=== PATIENT | female | born 1970 | race Hispanic/Latino ===

== ENCOUNTER 2018-03-25 21:58 | Observation (INO) | payer OTHER ==
--- OUTSIDE RECORDS SUMMARY | 2018-03-25 22:04 | XMS REPORT | Continuity of Care Document ---
:1970 Author Organization Interface Problems Problem Status Onset Classification Date Comments Source Date Reported 06/03 SLEEVE Active [address] MORBIT OBESITY Active [address] 447.10 Active 014 [facility] Angiography of Active Problem 06/07/2016 coronary arteries 014 [facility] Endometriosis Resolved Problem 09/24/2013 [facility] Hypercholesteremia Active Problem 09/24/2013 [facility] Anxiety Active Problem 06/07/2016 [facility] Endometriosis of Resolved Problem 06/07/2016 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 mL, Route: 2017 Medical SUB-Q, Drug Center form: INJ, Q8H, Dosing Weight 103.636, kg, Start date: 06/04/16 8:00:00 CDT, Duration: 30 day, Stop date: 07/04/16 0:00:00 CDTNotes: porcine heparin Ketorolac 30 mg, 1 mL, Inactive 06/04/ [facility] Route: IVP, 2017 Medical Drug form: Center INJ, Q6H, Dosing Weight 103.636, kg, Start date: 06/04/16 0:00:00 CDT, Duration: 6 doses or times, Stop date: 06/05/16 6:00:00 CDTNotes: (Same as:Toradol) IV bolus must be given >15 seconds. Give IM administration slowly and deeply into the muscle. Not for use > 4 days MEDICATION WASTE Product Size: 30 mg Product Wasted: __0_ mg Cefoxitin 2 gm, Route: Inactive [place] IVPB, Drug 2016 Medical form: INJ, Center Q6H, Dosing Weight 103.636, kg, Start date: 06/03/16 23:00:00 CDT, Duration: 1 doses or times, Stop date: 06/03/16 23:00:00 CDTNotes: (Same As: Mefoxin) MEDICATION WASTE Product Size: 2000 mg Product Wasted: 0 ___ mg Emend 125 mg, Route: Inactive [facility] IV, ONCE, 2016 Medical Dosing Weight Center 103.636, kg, PRN Nausea, Start date: 06/03/16 18:32:00 CDT Hydromorphone 15 mg, 30 mL, No Longer [facility] Route: IV, Active 2016 [facility] Initial Center Loading Dose: 0.4mg, [place] Dose: 0.2 mg, [place] Lockout: 10 minutes, Continuous Basal Rate: 0 mg, 4 Hour Limit (In MG): 6, Drug Form: INJ, Continuous, Start date: 06/03/16 18:30:00 CDT, Duration: 30 day, Stop date: 07/03/16...Not es: (Same as: Dilaudid) conc=0.5 mg/ml Hydromorphone [place] COOPER Dose: ;Delay: ;Basal: enalaprilat 1.25 mg, 1 mL, No Longer [facility] Route: IVP, Active 2016 Medical Drug form: Center INJ, Q6H, Dosing Weight 103.636, kg, PRN Hypertension, Start date: 06/03/16 18:05:00 CDT, Duration: 30 day, Stop date: 07/03/16 18:04:00 CDT, BP Systolic greater than 190 and BP Siastolic greater than 100Notes: (Same as: Vasotec-IV) Acetaminophen 21.7 15 mL, Route: No Longer [place] MG/ML / PO, Drug Form: Active 2017 Medical Hydrocodone SOLN, Dosing Center Bitartrate 0.5 Weight MG/ML Oral 103.636, kg, Solution Q4H, PRN Pain Score 4-6, Start date: 06/03/16 18:05:00 CDT, Duration: 30 day, Stop date: 07/03/16 18:04:00 CDTNotes: Do not exceed 4gm/day of acetaminophen. (Same as: [place] 325/7.5) Ondansetron 4 mg, 2 mL, No Longer [place] Route: IVP, Active 2016 Medical Drug form: Center INJ, Q6H, Dosing Weight 103.636, kg, PRN Nausea & Vomiting, Start date: 06/03/16 18:05:00 CDT, Duration: 30 day, Stop date: 07/03/16 18:04:00 CDTNotes: (Same as: Jayne) MEDICATION WASTE Product Size: 4 mg Product Wasted: __0_ mg Naloxone 0.04 mg, 0.1 No Longer [place] mL, Route: Active 2016 Medical IVP, Drug Center form: INJ, Q2MIN, Dosing Weight 103.636, kg, PRN Narcotic Reversal, Start date: 06/03/16 18:05:00 CDT, Duration: 30 day, Stop date: 07/03/16 18:04:00 CDTNotes: Same as Narcan Benadryl 25 mg, 0.5 mL, No Longer [place] Route: IV, Active 2016 Medical Drug form: Center INJ, QID, Dosing Weight 103.636, kg, PRN as needed for itching, Start date: 06/03/16 18:05:00 CDT, Duration: 30 day, Stop date: 07/03/16 18:04:00 CDTNotes: (Same as: Benadryl) D5W 1/2NS + KCL 1,000 mL, No Longer [place] 20mEq/L 1000ml Rate: 125 Active 2017 Medical (Premix) 1,000 mL ml/hr, Infuse Center over: 8 hr, Route: IV, Dosing Weight 103.636 kg, Total Volume: 1,000, Start date: 06/03/16 18:05:00 CDT, Duration: 30 day, Stop date: 07/03/16 18:04:00 CDTNotes: PREMIX IV - Do Not Alter WASTE: F/P - Sink; E - Municipal Trash [facility] Naloxone 0.4 mg, Route: Inactive Anayeli IVP, Q2MIN, 2016 Medical Dosing Weight Center 103.636, kg, PRN Narcotic Reversal, Start date: 06/03/16 17:44:00 CDT, Duration: 8 doses or times, Stop date: Limited # of times Flumazenil 0.2 mg, Route: Inactive [facility] IVP, PRN, 2016 Medical Dosing Weight Center 103.636, kg, PRN Benzodiazepine Reversal, Initial dose, Start date: 06/03/16 17:44:00 CDT, Duration: 30 day, Stop date: 07/03/16 17:43:00 CDT Ondansetron 4 mg, Route: Inactive [facility] IVP, ONCE, 2016 Medical Dosing Weight Center 103.636, kg, PRN Nausea & Vomiting, Start date: 06/03/16 17:44:00 CDT Hydromorphone 0.5 mg, Route: Inactive [facility] IVP, Q5Min, 2016 Medical Dosing Weight Center 103.636, kg, PRN Pain Score 7-10, Start date: 06/03/16 17:44:00 CDT, Duration: 4 doses or times, Stop date: Limited # of times bupivacaine 1,350 MISC, 4 ml/hr, No Longer Anayeli mg + Q-Pump 1 ea Start date: Active 2016 [facility] 06/03/16 Center 15:19:00 CDT, Duration: 7, 270 ml, 103.636Notes: Preservative free. (Same As: Marcaine-MPF) heparin 5,000 unit, 1 No Longer [place] mL, Route: Active 2016 [facility] form: INJ, PRE OP, Start date: 06/03/16 11:00:00 CDT, Duration: 1 day, Stop date: 06/04/16 10:59:00 CDTNotes: porcine heparin Ofirmev 1 gm, 100 mL, No Longer [place] Route: IV, Active 2016 Medical Drug form: [place] INJ, PRE OP, Start date: 06/03/16 11:00:00 CDT, Duration: 1 day, Stop date: 06/04/16 10:59:00 CDTNotes: Infuse over 15 minutes Do not exceed 4gm/day of acetaminophen MEDICATION WASTE Product Size: 1000 mg Product Wasted: ___ mg scopolamine 1 patch, No Longer [place] Route: TOP, Active 2016 Medical Drug form: [place] ERFILM, PRE OP, Start date: 06/03/16 11:00:00 CDT, Duration: 1 day, Stop date: 06/04/16 10:59:00 CDTNotes: Change patch every 72 hours (Same as: Transderm-Scop ) Mefoxin 2 gm, Route: Inactive [place] IVPB, Drug 2016 Medical form: INJ, PRE Center OP, Start date: 06/03/16 11:00:00 CDT, Duration: 1 day, Stop date: 06/04/16 10:59:00 CDTNotes: (Same As: Mefoxin) MEDICATION WASTE Product Size: 2000 mg Product Wasted: ___ mg Fish Oil 1,000 mg, No Longer Route: PO, Active 2013 [facility] Drug form: CAP, Daily, Dosing Weight 95.909, kg, Start date: 09/23/13 9:00:00, Duration: 30 day, Stop date: 10/22/13 9:00:00 Hydrochlorothiazid 25 mg, 1 tab, No Longer e Route: PO, Active 2013 [facility] Drug form: TAB, Daily, Dosing Weight 95.909, kg, Start date: 09/23/13 9:00:00, Duration: 30 day, Stop date: 10/22/13 9:00:00Notes: (Same as: Hydrodiuril) With food. Famotidine 20 MG 20 mg, 1 tab, No Longer Oral Tablet Route: PO, Active 2013 [facility] Drug form: TAB, Daily, Dosing Weight 95.909, kg, Start date: 09/23/13 9:00:00, Duration: 30 day, Stop date: 10/22/13 9:00:00 Lovaza 1 gm, 1 cap, No Longer Route: PO, Active 2013 [facility] Drug form: CAP, Daily, Start date: 09/23/13 9:00:00, Duration: 30 day, Stop date: 10/22/13 9:00:00Notes: (Same as: Lovaza, formally named [place]) "Do Not Crush" pharmacy re-entry for product selection Aspirin 81 MG 81 mg, 1 tab, No Longer Enteric Coated Route: PO, Active 2013 [facility] Tablet Drug form: ECTAB, Daily, Dosing Weight 95.909, kg, Start date: 09/23/13 9:00:00, Duration: 30 day, Stop date: 10/22/13 9:00:00Notes: Do not crush or chew. (Same As: Ecotrin) Zinacef + Sodium 1.5 gm, Route: Inactive Chloride 0.9% IV IVPB, ONCE, 2013 [facility] 100 mL Start date: 09/22/13 23:00:00, Stop date: 09/22/13 23:00:00Notes: (Same As: Kefurox, Zinacef) Pepcid 20 mg, 1 tab, Inactive Route: PO, 2013 [facility] Drug form: TAB, Q12H, Start date: 09/22/13 21:00:00, Duration: 30 day, Stop date: 10/22/13 9:00:00Notes: (Same as: Pepcid) atorvastatin 10 mg, 1 tab, Inactive Route: PO, 2013 [facility] Drug form: TAB, Bedtime, Dosing Weight 95.909, kg, Start date: 09/22/13 21:00:00, Duration: 30 day, Stop date: 10/21/13 21:00:00Notes: (Same As: Lipitor) Metoclopramide 10 mg, 2 mL, Inactive Route: IVP, 2013 [facility] Drug form: INJ, Q6H, Dosing Weight 95.909, kg, PRN Nausea & Vomiting, Start date: 09/22/13 15:54:00, Stop date: 09/22/13 23:00:00Notes: (Same as: Reglan) Fentanyl 25 microgram, Inactive 0.5 mL, Route: 2013 [facility] IVP, Drug form: INJ, Q5Min, Dosing Weight 95.909, kg, PRN Pain Score 4-6, Start date: 09/22/13 15:54:00, Duration: 4 doses or times, Stop date: 09/22/13 23:00:00Notes: (Same as: Sublimaze) Preservative free. Ondansetron 4 mg, 2 mL, Inactive Route: IVP2013 [facility] Drug form: INJ, ONCE, Dosing Weight 95.909, kg, PRN Nausea & Vomiting, Start date: 09/22/13 15:54:00Notes: (Same as: Zofran) Flumazenil 0.2 mg, 2 mL, Inactive Route: IVP2013 [facility] Drug form: INJ, PRN, Dosing Weight 95.909, kg, PRN Benzodiazepine Reversal, Initial dose, Start date: 09/22/13 15:54:00, Stop date: 09/22/13 23:00:00Notes: (Same as: Romazicon) Naloxone 0.04 mg, 0.1 Inactive mL, Route: 2013 [facility] IVP, Drug form: INJ, Q2MIN, Dosing Weight 95.909, kg, PRN Narcotic Reversal, Start date: 09/22/13 15:54:00, Duration: 8 doses or times, Stop date: 09/22/13 23:00:00Notes: Same as Narcan Labetalol 10 mg, 2 mL, Inactive Route: IVP2013 [facility] Drug form: INJ, Q5Min, Dosing Weight 95.909, kg, PRN Elevated BP, Start date: 09/22/13 15:54:00, Duration: 5 doses or times, Stop date: 09/22/13 23:00:00 Hydralazine 10 mg, 0.5 mL, Inactive Route: IVP2013 [facility] Drug form: INJ, Q20Min, Dosing Weight 95.909, kg, PRN Elevated BP, Start date: 09/22/13 15:54:00, Duration: 2 doses or times, Stop date: 09/22/13 23:00:00Notes: (Same as: Apresoline) Push over 5 minutes Sodium Chloride 250 mL, Route: Inactive 0.9% IV IVPB, Start 2013 [facility] date: 09/22/13 15:43:00, Duration: 30 day, Stop date: 10/22/13 15:42:00, PRN Line Flush BD Normal Saline 10 mL, Route: Inactive Flush IVP, Drug 2013 [facility] Form: INJ, PRN, PRN Line Flush, Start date: 09/22/13 15:43:00, Duration: 30 day, Stop date: 10/22/13 15:42:00Notes: (Same as: BD Posiflush) Zofran 4 mg, 2 mL, Inactive Route: IV, 2013 [facility] Drug form: INJ, Q6H, Dosing Weight 93.651, kg, PRN Nausea, Start date: 09/22/13 15:40:00, Duration: 30 day, Stop date: 10/22/13 15:39:00Notes: (Same as: Zofran) NS 0.45% IV 1,000 1,000 mL, Inactive mL Rate: 50 2013 [facility] ml/hr, Infuse over: 20 hr, Route: IV, Dosing Weight 95.909 kg, Total Volume: 1,000, Start date: 09/22/13 15:40:00, Duration: 30 day, Stop date: 10/22/13 15:39:00 acetaminophen-code 2 tab, Route: Inactive ine #3 PO, Drug Form: 2013 [facility] TAB, Dosing Weight 95.909, kg, Q4H, PRN Pain Score 4-6, Start date: 09/22/13 15:40:00, Duration: 30 day, Stop date: 10/22/13 15:39:00Notes: Do not exceed 4gm/day of acetaminophen. (Same as: Tylenol with Codeine # 3) Acetaminophen 325 1 tab, Route: Inactive MG / Hydrocodone PO, Drug Form: 2013 [facility] Bitartrate 5 MG TAB, Dosing Oral Tablet Weight 95.909, kg, Q4H, PRN Pain Score 4-6, Start date: 09/22/13 15:40:00, Duration: 30 day, Stop date: 10/22/13 15:39:00Notes: (Same as: [place] 325/5) Do not exceed 4gm/day of acetaminophen. Acetaminophen 325 1 tab, Route: Inactive MG / Hydrocodone PO, Drug Form: 2013 [facility] Bitartrate 10 MG TAB, Dosing Oral Tablet Weight 95.909, kg, Q4H, PRN Pain Score 4-6, Start date: 09/22/13 15:40:00, Duration: 30 day, Stop date: 10/22/13 15:39:00Notes: Do not exceed 4gm/day of acetaminophen. (Same as: [place] 325/10) Acetaminophen 650 mg, 2 tab, Inactive Route: PO, 2013 [facility] Drug form: TAB, Q4H, Dosing Weight 95.909, kg, PRN Pain 1-3/Temp > 100.4 F, Start date: 09/22/13 15:40:00, Duration: 30 day, Stop date: 10/22/13 15:39:00Notes: Do not exceed 4 gm/day. (Same as: Tylenol) Cefuroxime 1.5 gm, Route: No Longer IVPB, ONCALL, Active 2013 [facility] Dosing Weight 95.909, kg, Start date: 09/19/13 11:00:00, Duration: 30 day, Stop date: 10/19/13 10:59:00Notes: (Same As: Kefurox, Zinacef) atorvastatin 10 mg 10 mg=1 tab, Active oral tablet PO, Bedtime 2013 [facility] Aspirin 81 MG 81 mg=1 tab, Active Enteric Coated PO, Daily 2013 [facility] Tablet Docusate Sodium 100 mg=1 cap, Active 100 MG Oral PO, Daily, 2013 [facility] Capsule [Colace] Constipation Hydrochlorothiazid 25 mg, PO, Active e Daily 2013 [facility] Fish Oil 1000 mg 1,000 mg=1 Active oral capsule cap, PO, Daily 2013 [facility] Vitamin D3 1000 1,000 Active intl units oral IntlUnit=1 2013 [facility] capsule cap, PO, Daily Famotidine 20 MG 20 mg=1 tab, Active Oral Tablet PO, Daily 2013 [facility] Allergies, Adverse Reactions, Alerts Substance Category Reaction Severity Reaction Status Date Comments Source type Reported Compazine Assertion " HEAD Drug Active [facility] LOCKED TO allergy Medical [facility] Center POSITION, JAW SHIFTED OVER, EYES ROLLED UP" NKFA Assertion Food Active [facility] Immunizations Immunization Date Given Site Status Last Updated Comments Source Results Order Name Results Value Reference Date Interpretation Comments Source Range Breast Breast w/wo AMENDMENT: 01/11/2018 Drew Amato M.D. 12/07 - OPID w/wo /2017 - [place] contrast bilat MRI No prior ultrasounds are available at this time. Short interval followup is recommended in the absence of sonographic comparisons. A 6 month followup mammogram, ultrasound and MRI are recommended. bilat MRI Read by: Drew Amato MD Dictated Date/time: 01/11/18 09:11 Amended BI-RADS: 3 Probably benign Electronically Signed by: Drew Amato MD 01/11/18 09:11 FINAL REPORT letter sent: BI-RADS 3 - - Read by: Drew Amato MD Dictated Date/time: 12/07/17 17:23 Electronically Signed by: Drew Amato MD 12/07/17 17:23 FINAL REPORT BREAST MRI OF BOTH BREASTS : 12/07/2017 CLINICAL: /Rt Breast Lump, Inconclusive Mammogram. COMPARISON:No prior exams were available for comparison. TECHNIQUE: Interpretation of this MRI was correlated with available mammograms. 14 cc of MultiHance contrast was injected. Axial T1 and T2 and sagittal T1 images were obtained. FINDINGS: Bilateral background breast enhancement is marked. Foci present both breasts. There are multiple cysts seen in the bilateral breasts most prominent in the left lower outer quadrant, the largest of which at 4 oclock measures 2.4cm in size. These are described in the ultrasound rep ort. However no ultrasound images are available for review. It would be helpful to acquire outside ultrasound images for review. There is no suspicious right upper outer breast finding to correspond with the palpable. There are no abnormalities seen in the axillary nodes region. IMPRESSION: INCOMPLETE: NEEDS ADDITIONAL IMAGING EVALUATION RECOMMENDATION:Multiple bilateral cysts are probably benign. The outside ultrasound images are needed for review. Clinical managment of the palpable finding is recommended. A follow-up ultrasound in 6 months is recommended to demonstrate stability. (06/08/2018) This exam was interpreted at [id number] for [facility]. SUMMARY: Prior ultrasound films are needed for comparison. If these become available , the above recommendation may not be needed and an addendum may be generated. Drew Amato M.D. [facility]/:12/07/2017 17:23:46 Crab Fisher(s): PING SIMONS RT, [facility] Outpatient Imaging Department letter sent: BI-RADS 0 MRI BI-RADS: 0 Indeterminate CHEM PANEL Magnesium 2.5 mg/dL 1.8 - 2.4 06/[address] [facility] CHEM PANEL Phosphorus 3.4 mg/dL 2.5 - 4.5 06/04 [facility]2016 [facility] ELECTROLYT AGAP 21.3 meq/L 10.0 - 06/04 [facility] ES 20.0 [facility] ELECTROLYT eGFR 111 06/04 Result Comment: The eGFR is calculated using the CKD-EPI formula. In most young, healthy individuals the eGFR will be >90 mL/ min/1.73m2. The eGFR declines with age. An eGFR of 60-89 may be normal in [facility] mL/min/1.7 /2016 some populations, particularly the elderly, for whom the CKD-EPI formula has not been extensively validated. Use of the eGFR is not recommended in the following populations: [address] Individuals with unstable creatinine concentrations, including patients and those with serious co-morbid conditions. Patients with extremes in muscle mass or diet. The data above are obtained from the National Kidney Disease Education Program (NKDEP) which additionally recommends that when the eGFR is used in patients with extremes of body mass index for purposes of drug dosing, the eGFR should be multiplied by the estimated BMI. ELECTROLYT Potassium 4.3 meq/L 3.5 - 5.1 06/04 [facility] ES Lvl [facility] ELECTROLYT CO2 17 meq/L 24 - 32 06/04 [facility] ELECTROLYT Chloride Lvl 106 meq/L 95 - 109 06/04 [facility] ELECTROLYT Calcium Lvl 8.6 mg/dL 8.5 - 10.5 06/04 [facility] ELECTROLYT BUN 11 mg/dL 7 - 22 06/04 [facility] ELECTROLYT Glucose Lvl 114 mg/dL 70 - 99 06/04 [facility] ELECTROLYT Creatinine 0.62 mg/dL 0.50 - 06/04 [facility] ES Lvl 1.40 [facility] ELECTROLYT Sodium Lvl 140 meq/L 135 - 145 06/04 [facility] HEMATOLOGY Platelet 229 K/CMM 133 - 450 06/04 [facility] HEMATOLOGY RDW 15.4 % 11.5 - 06/04 14.5 [facility] HEMATOLOGY MPV 8.9 fL 7.4 - 10.4 06/04 [facility] HEMATOLOGY MCV 85.9 fL 80.0 - 06/04 [facility] 98.0 [facility] HEMATOLOGY Hct 40.4 % 36.0 - 06/04 48.0 [facility] HEMATOLOGY MCHC 33.4 g/dL 32.0 - 06/04 36.0 [facility] HEMATOLOGY MCH 28.7 pg 27.0 - 06/04 [facility] 31.0 [facility] HEMATOLOGY Hgb 13.5 g/dL 12.0 - 06/04 [facility] 16.0 [facility] HEMATOLOGY WBC 8.6 K/CMM 3.7 - 10.4 06/04 [facility] HEMATOLOGY RBC 4.70 M/CMM 4.20 - 06/04 [place] 5.40 [facility] HEMATOLOGY PTT 26.6 s 22.9 - 06/04 [place] 35.8 [facility] HEMATOLOGY PT 14.8 s 12.0 - 06/04 14.7 [facility] HEMATOLOGY INR 1.14 0.85 - 06/04 [place] 1.17 [facility] HEMATOLOGY Basophils 0.1 % 0.0 - 1.0 06/04 [facility] HEMATOLOGY Segs-Bands # 7.8 K/CMM 1.5 - 8.1 06/04 [facility] HEMATOLOGY Monocytes 2.2 % 2.0 - 12.0 06/04 [facility] HEMATOLOGY Lymphocytes 7.9 % 20.0 - 06/04 [place] 40.0 [facility] HEMATOLOGY Segs 89.8 % 45.0 - 06/04 [facility] 75.0 [facility] HEMATOLOGY Lymphocytes 0.7 K/CMM 1.0 - 5.5 06/04 [facility] # /2016 [facility] HEMATOLOGY Monocytes # 0.2 K/CMM 0.0 - 0.8 06/04 [facility] BLOOD BANK Antibody Negative 06/03 [facility] RESULTS Scrn [facility] (06/03/16 10:51 AM) [place] BLOOD BANK ABO/Rh A POS 06/03 [facility] RESULTS [facility] CHEM PANEL eGFR 112 05/29 Result Comment: The eGFR is calculated using the CKD-EPI formula. In most young, healthy individuals the eGFR will be >90 mL/ min/1.73m2. The eGFR declines with age. An eGFR of 60-89 may be normal in [facility] mL/min/1.7 /2016 some populations, particularly the elderly, for whom the CKD-EPI formula has not been extensively validated. Use of the eGFR is not recommended in the following populations: [address] Individuals with unstable creatinine concentrations, including patients and those with serious co-morbid conditions. Patients with extremes in muscle mass or diet. The data above are obtained from the National Kidney Disease Education Program (NKDEP) which additionally recommends that when the eGFR is used in patients with extremes of body mass index for purposes of drug dosing, the eGFR should be multiplied by the estimated BMI. CHEM PANEL AST 19 unit/L 0 - 37 05/29 [facility] CHEM PANEL Bili Total 0.6 mg/dL 0.2 - 1.3 05/29 [facility] CHEM PANEL Alk Phos 173 unit/L 39 - 136 05/29 [facility] CHEM PANEL ALT 40 unit/L 0 - 65 05/29 [facility] CHEM PANEL Creatinine 0.60 mg/dL 0.50 - 05/29 [facility] Lvl 1.40 [facility] CHEM PANEL Glucose Lvl 73 mg/dL 70 - 99 05/29 [facility] CHEM PANEL Potassium 4.3 meq/L 3.5 - 5.1 05/29 [facility] Lvl [facility] CHEM PANEL BUN 19 mg/dL 7 - 22 05/29 [facility] CHEM PANEL Sodium Lvl 139 meq/L 135 - 145 05/29 [facility] CHEM PANEL Total 7.8 g/dL 6.4 - 8.4 05/29 [facility] CHEM PANEL CO2 27 meq/L 24 - 32 05/29 [facility] CHEM PANEL Chloride Lvl 100 meq/L 95 - 109 05/29 [facility] CHEM PANEL Calcium Lvl 9.3 mg/dL 8.5 - 10.5 05/29 [facility] CHEM PANEL Albumin Lvl 4.2 g/dL 3.5 - 5.0 05/29 [facility] CHEM PANEL AGAP 16.3 meq/L 10.0 - 05/29 20.0 [facility] CHEM PANEL B/C Ratio 32 6 - 25 05/29 [facility] CHEM PANEL A/G Ratio 1.2 0.7 - 1.6 05/29 [facility] CHEM PANEL Globulin 3.6 g/dL 2.7 - 4.2 05/29 [facility] HEMATOLOGY MPV 9.0 fL 7.4 - 10.4 05/29 [facility] HEMATOLOGY Platelet 229 K/CMM 133 - 450 05/29 [facility] HEMATOLOGY MCHC 33.5 g/dL 32.0 - 05/29 36.0 [facility] HEMATOLOGY RDW 15.2 % 11.5 - 05/29 14.5 [facility] HEMATOLOGY Hct 45.4 % 36.0 - 05/29 48.0 [facility] HEMATOLOGY RBC 5.33 M/CMM 4.20 - 05/29 5.40 /2016 [facility] HEMATOLOGY MCV 85.2 fL 80.0 - 05/29 98.0 [facility] HEMATOLOGY Hgb 15.2 g/dL 12.0 - 05/29 16.0 [facility] HEMATOLOGY WBC 9.5 K/CMM 3.7 - 10.4 05/29 [facility] HEMATOLOGY MCH 28.5 pg 27.0 - 05/29 31.0 [facility] HEMATOLOGY Basophils 0.3 % 0.0 - 1.0 05/29 [facility] HEMATOLOGY Eosinophils 0.3 % 0.0 - 4.0 05/29 [facility] HEMATOLOGY Monocytes 3.7 % 2.0 - 12.0 05/29 [facility] HEMATOLOGY Segs-Bands # 6.7 K/CMM 1.5 - 8.1 05/29 [facility] HEMATOLOGY Lymphocytes 25.8 % 20.0 - 05/29 [facility] 40.0 [facility] HEMATOLOGY Segs 69.9 % 45.0 - 05/29 [place] 75.0 /2016 [facility] HEMATOLOGY Monocytes # 0.4 K/CMM 0.0 - 0.8 05/29 [facility] HEMATOLOGY Lymphocytes 2.5 K/CMM 1.0 - 5.5 05/29 [facility] # /2016 [facility] CHEM PANEL eGFR 114 09/22 1Result Comment: The eGFR is calculated using the CKD-EPI formula. In most young, healthy individuals the eGFR will be > 90 mL/min/1.73m2. The eGFR declines with age. An eGFR of 60-89 may be normal in mL/min/1. some populations, particularly the elderly, for whom the CKD-EPI formula has not been extensively validated. Use of the eGFR is not recommended in the following populations: [place] [id number] Individuals with unstable creatinine concentrations, including patients and those with serious co-morbid conditions. Patients with extremes in muscle mass or diet. The data above are obtained from the National Kidney Disease Education Program (NKDEP) which additionally recommends that when the eGFR is used in patients with extremes of body mass index for purposes of drug dosing, the eGFR should be multiplied by the estimated BMI. CHEM PANEL POC 13.3 g/dL 12.0 - 09/22 Hemoglobin 16.0 /2013 [facility] CHEM PANEL POC Ion Ca 1.21 1.05 - 09/22 mMol/L 1.25 /2013 [facility] CHEM PANEL POC AGAP 17.0 meq/L 10.0 - 09/22 20.0 [facility] CHEM PANEL POC 39.0 % 36.0 - 09/22 Hematocrit 48.0 [facility] CHEM PANEL POC Chloride 106 meq/L 95 - 109 09/22 [facility] CHEM PANEL POC Sodium 142 meq/L 135 - 145 09/22 [facility] CHEM PANEL POC 4.0 meq/L 3.5 - 5.1 09/22 Potassium [facility] CHEM PANEL POC Carbon 24 mEq/dL 24 - 32 09/22 Dioxide [facility] CHEM PANEL POC BUN 16 mg/dL 7 - 22 09/22 [facility] CHEM PANEL POC 0.6 mg/dL 0.5 - 1.4 09/22 Creatinine /2013 [facility] CHEM PANEL POC Glucose 83 mg/dL 70 - 99 09/22 [facility] BLOOD BANK Antibody Negative 09/19 RESULTS Scrn [facility] (09/19/13 10:34 AM) BLOOD BANK ABO/Rh A POS 09/19 RESULTS [facility] BLOOD BANK RBC product Product available 09/19 RESULTS [facility] (09/19/13 10:34 AM) ELECTROLYT AGAP 11.1 meq/L 10.0 - 09/19 ES 20.0 [facility] ELECTROLYT Calcium Lvl 9.2 mg/dL 8.5 - 10.5 09/19 ES [facility] ELECTROLYT Creatinine 0.6 mg/dL 0.5 - 1.4 09/19 ES Lvl [facility] ELECTROLYT BUN 24 mg/dL - 09/19 ES [facility] ELECTROLYT Potassium 3.1 meq/L 3.5 - 5.1 09/19 ES Lvl [facility] ELECTROLYT Sodium Lvl 140 meq/L 135 - 145 09/19 ES [facility] ELECTROLYT eGFR 114 09/19 2Result Comment: The eGFR is calculated using the CKD-EPI formula. In most young, healthy individuals the eGFR will be > 90 mL/min/1.73m2. The eGFR declines with age. An eGFR of 60-89 may be normal in mL/min/1. some populations, particularly the elderly, for whom the CKD-EPI formula has not been extensively validated. Use of the eGFR is not recommended in the following populations: [facility] 3m2 Individuals with unstable creatinine concentrations, including patients and those with serious co-morbid conditions. Patients with extremes in muscle mass or diet. The data above are obtained from the National Kidney Disease Education Program (NKDEP) which additionally recommends that when the eGFR is used in patients with extremes of body mass index for purposes of drug dosing, the eGFR should be multiplied by the estimated BMI. ELECTROLYT CO2 29 meq/L 24 - 32 09/19 ES [facility] ELECTROLYT Chloride Lvl 103 meq/L 95 - 109 09/19 ES [facility] ELECTROLYT Glucose Lvl 85 mg/dL 70 - 99 09/19 3Interpretive Data: Adult reference range values reflect the clinical guidelines of the [place] [employer]. [facility] ENDOCRINOL S Preg Negative Negative 09/19 OGY /2013 [facility] *NA* (09/19/13 10:34 AM) HEMATOLOGY MPV 9.1 fL 7.4 - 10.4 09/19 /2013 [facility] HEMATOLOGY Platelet 227 K/CMM 133 - 450 09/19 [facility] HEMATOLOGY RDW 14.2 % 11.5 - 09/19 14.5 [facility] HEMATOLOGY MCHC 33.9 g/dL 32.0 - 09/19 36.0 /2013 [facility] MCH 29.3 pg 27.0 - 09/19 31.0 /2013 [facility] MCV 86.5 fL 81.0 - 09/19 99.0 /2013 [facility] HEMATOLOGY Hct 40.1 % 36.0 - 09/19 48.0 [facility] Hgb 13.6 g/dL 12.0 - 09/19 16.0 [facility] HEMATOLOGY RBC 4.63 M/CMM 4.20 - 09/19 5.40 /2013 [facility] WBC 6.8 K/CMM 3.7 - 10.4 09/19 [facility] INR 1.00 0.85 - 09/19 4Interpretive Data: RECOMMENDED RANGES FOR PROTIME INR: 1.17 2.0-3.0 for most medical and surgical thromboembolic states. [facility] 2.5-3.5 for artificial heart valves and recurrent embolism. INR SHOULD BE USED ONLY FOR PATIENTS ON STABLE ANTICOAGULANT THERAPY. HEMATOLOGY PT 13.1 s 12.0 - 09/19 14.7 [facility] HEMATOLOGY PTT 30.0 s 22.9 - 08 5Interpretive 35.8 Data: Heparin [facility] Therapeutic Range: 57 - 92 [facility] HEMATOLOGY Eosinophils 0.1 K/CMM 0.0 - 0.5 07/08 [facility] # /2014 [facility] HEMATOLOGY Monocytes # 0.3 K/CMM 0.0 - 0.8 /08 /2013 [facility] Lymphocytes 1.9 K/CMM 1.0 - 5.5 /08 # /2013 [facility] Basophils # 0.0 K/CMM 0.0 - 0.2 /08 /2013 [facility] HEMATOLOGY Segs-Bands # 4.5 K/CMM 1.5 - 8.1 09/19 [place] HEMATOLOGY Basophils 0.3 % 0.0 - 1.0 09/19 [facility] HEMATOLOGY Lymphocytes 28.3 % 20.0 - 07/08 [facility] 40.0 /2013 [facility] HEMATOLOGY Monocytes 4.0 % 2.0 - 12.0 09/19 [facility] HEMATOLOGY Eosinophils 1.1 % 0.0 - 4.0 09/19 [facility] HEMATOLOGY Segs 66.3 % 45.0 - 07/08 75.0 /2013 [facility] Vital Signs Vital Sign Value Date Comments Source Respitory Rate 18 06/04/2016 [facility] Heart Rate 64 06/04/2016 [facility] Temperature Oral (F) 98.0 F 06/04/2016 [facility] Systolic (mm Hg) 107 06/04/2016 [facility] Diastolic (mm Hg) 70 06/04/2016 [facility] Respitory Rate 18 06/04/2016 [facility] Temperature Oral (F) 98.5 F 06/04/2016 [facility] Heart Rate 71 06/04/2016 [facility] Systolic (mm Hg) 125 06/04/2016 [facility] Diastolic (mm Hg) 76 06/04/2016 [facility] Heart Rate 72 06/04/2016 [facility] Respitory Rate 18 06/04/2016 [facility] Systolic (mm Hg) 125 06/04/2016 [facility] Diastolic (mm Hg) 85 06/04/2016 [facility] Temperature Oral (F) 97.8 F 06/04/2016 [facility] Weight 103.636 06/04/2016 [facility] BMI Calculated 38.02 06/04/2016 [facility] Height 165.1 cm 06/04/2016 [facility] Weight 103.636 06/03/2016 [facility] BMI Calculated 38.02 06/03/2016 [facility] Height 165.1 cm 05/29/2016 [facility] Respitory Rate 18 09/23/2013 [facility] Systolic (mm Hg) 114 09/23/2013 [facility] Diastolic (mm Hg) 77 09/23/2013 [facility] Diastolic (mm Hg) 75 09/22/2013 [facility] Systolic (mm Hg) 110 09/22/2013 [facility] Respitory Rate 20 09/22/2013 [facility] Diastolic (mm Hg) 70 09/22/2013 [facility] Systolic (mm Hg) 113 09/22/2013 [facility] Respitory Rate 20 09/22/2013 [facility] Height 165.1 cm 09/22/2013 [facility] BMI Calculated 35.19 09/22/2013 [facility] Weight 95.909 09/22/2013 [facility] Temperature Oral (F) 98.2 F 09/22/2013 [facility] BMI Calculated 35.19 09/19/2013 [facility] Weight 95.909 09/19/2013 [facility] Height 165.1 cm 09/19/2013 [facility] Heart Rate 86 09/19/2013 [facility] Temperature Oral (F) 98.3 F 09/19/2013 [facility] Encounters Location Location Encounter Encounter Reason Attending ADM DC Status Source Details Type Number For Provider Date Date Visit [facility] [id number] [place] 09[facility]22 09[facility]23 [facility] [place] [facility] Inpatient [id number] [place] 06/04 06/05 [facility] [place] /2016 [facility] Procedures Procedure Code Date Perfomer Comments Source Evacuation of [id number] Right leg [facility] hematoma<sup>1</sup> 4 exploration, Medical evacuation of Center hematoma, repair of Right femoral artery, arteriograms [facility] [id number] [facility] catheterization 4 Cardiac [id number] [facility] catheterization 4 [facility] Ovarian operation [id number] [address] Appendectomy [id number] [facility] Catheterization of [id number] [facility] left [facility] Cystectomy<sup>2</spencer [id number] ovarian [facility] p> Medical Center Operation<sup>3</sup [id number] endometriosis [facility] > times three Medical surgeries [place] Stent [id number] iliac vein [facility] placement<sup>4</sup Medical > Center
--- OUTSIDE RECORDS SUMMARY | 2018-03-25 22:04 | XMS REPORT | Summary of Care ---
:1970 Author Encounter HQ Rohan_marija(HODAN) [id number] Date(s): 09/22/13 - 09/22/[address] Discharge Disposition: Home Physician Attending: Morris Early MD Physician Admitting: Morris Early MD Physician_Referring: Morris Early MD Reason for Visit 447.10 Vital Signs Most recent to oldest 1 2 3 [Reference Range]: Height 165.1 cm 165.1 cm (09/22/13 11:15 AM) (09/19/13 10:10 AM) Temperature Oral [96.4-99.1 98.2 DegF 98.3 DegF DegF] (09/22/13 9:30 AM) (09/19/13 10:10 AM) Systolic Blood Pressure 114 mmHg 110 mmHg 113 mmHg [90-140 mmHg] (09/22/13 7:00 PM) (09/22/13 6:45 PM) (09/22/13 6:30 PM) Diastolic Blood Pressure 77 mmHg 75 mmHg 70 mmHg [60-90 mmHg] (09/22/13 7:00 PM) (09/22/13 6:45 PM) (09/22/13 6:30 PM) Respiratory Rate [14-20 BRMIN] 18 BRMIN 20 BRMIN 20 BRMIN (09/22/13 7:00 PM) (09/22/13 6:45 PM) (09/22/13 6:30 PM) Peripheral Pulse Rate [60-100 86 bpm bpm] (09/19/13 10:10 AM) Weight 95.909 kg 95.909 kg (09/22/13 11:15 AM) (09/19/13 10:10 AM) Body Mass Index 35.19 m2 35.19 m2 (09/22/13 11:15 AM) (09/19/13 10:10 AM) Problem List Condition Effective Dates Status Health Status Informant Angiography of coronary 08/15/13 Active arteries(Confirmed) Endometriosis(Confirmed) Resolved Hypercholesteremia(Confirmed) Active Occlusion of iliac vein(Confirmed) Active Ovarian cyst(Confirmed) Resolved Allergies, Adverse Reactions, Alerts Substance Reaction Severity Status Compazine " HEAD LOCKED TO ONE POSITION, JAW SHIFTED OVER, EYES Active ROLLED UP" NKFA Active Medications acetaminophen 650 mg, 2 tab, Route: PO, Drug form: TAB, Q4H, Dosing Weight 95.909, kg, PRN Pain 1-3/Temp > 100.4 F, Start date: 09/22/13 15:40:00, Duration: 30 day, Stop date: 10/22/13 15:39:00 Notes: Do not exceed 4 gm/day. (Same as: Tylenol) Start Date: 09/22/13 Stop Date: 09/22/13 Status: Discontinuedacetaminophen-codeine #3 2 tab, Route: PO, Drug Form: TAB, Dosing Weight 95.909, kg, Q4H, PRN Pain Score 4-6, Start date: 09/22/13 15:40:00, Duration: 30 day, Stop date: 10/22/13 15:39: 00 Notes: Do not exceed 4gm/day of acetaminophen. (Same as: Tylenol with Codeine # 3) Start Date: 09/22/13 Stop Date: 09/22/13 Status: Discontinuedacetaminophen-hydrocodone 325 mg-10 mg oral tablet 1 tab, Route: PO, Drug Form: TAB, Dosing Weight 95.909, kg, Q4H, PRN Pain Score 4-6, Start date: 09/22/13 15:40:00, Duration: 30 day, Stop date: 10/22/13 15:39: 00 Notes: Do not exceed 4gm/day of acetaminophen. (Same as: [place] 325/10) Start Date: 09/22/13 Stop Date: 09/22/13 Status: Discontinuedacetaminophen-hydrocodone 325 mg-5 mg oral tablet 1 tab, Route: PO, Drug Form: TAB, Dosing Weight 95.909, kg, Q4H, PRN Pain Score 4-6, Start date: 09/22/13 15:40:00, Duration: 30 day, Stop date: 10/22/13 15:39: 00 Notes: (Same as: [place] 325/5) Do not exceed 4gm/day of acetaminophen. Start Date: 09/22/13 Stop Date: 09/22/13 Status: Discontinuedaspirin 81 mg tablet, enteric coated 81 mg=1 tab, PO, Daily Start Date: 09/19/13 Status: Orderedaspirin 81 mg tablet, enteric coated 81 mg, 1 tab, Route: PO, Drug form: ECTAB, Daily, Dosing Weight 95.909, kg, Start date: 09/23/13 9:00:00, Duration: 30 day, Stop date: 10/22/13 9:00:00 Notes: Do not crush or chew.(Same As: Ecotrin) Start Date: 09/23/13 Stop Date: 09/22/13 Status: Canceledatorvastatin 10 mg, 1 tab, Route: PO, Drug form: TAB, Bedtime, Dosing Weight 95.909, kg, Start date: 09/22/13 21:00:00, Duration: 30 day, Stop date: 10/21/13 21:00:00 Notes: (Same As: Lipitor) Start Date: 09/22/13 Stop Date: 09/22/13 Status: Canceledatorvastatin 10 mg oral tablet 10 mg=1 tab, PO, Bedtime Start Date: 09/19/13 Status: OrderedBD Normal Saline Flush 10 mL, Route: IVP, Drug Form: INJ, PRN, PRN Line Flush, Start date: 09/22/13 15: 43:00, Duration: 30 day, Stop date: 10/22/13 15:42:00 Notes: (Same as: BD Posiflush) Start Date: 09/22/13 Stop Date: 09/22/13 Status: Discontinuedcefuroxime + Sodium Chloride 0.9% IV 100 mL 1.5 gm, Route: IVPB, ONCALL, Dosing Weight 95.909, kg, Start date: 09/19/13 11: 00:00, Duration: 30 day, Stop date: 10/19/13 10:59:00 Notes: (Same As: Kefurox, Zinacef) Start Date: 09/19/13 Stop Date: 09/22/13 Status: DiscontinuedColace 100 mg oral capsule 100 mg=1 cap, PO, Daily, Constipation Start Date: 09/19/13 Status: Orderedfamotidine 20 mg oral tablet 20 mg, 1 tab, Route: PO, Drug form: TAB, Daily, Dosing Weight 95.909, kg, Start date: 09/23/13 9:00:00, Duration: 30 day, Stop date: 10/22/13 9:00:00 Start Date: 09/23/13 Stop Date: 09/22/13 Status: Deletedfamotidine 20 mg oral tablet 20 mg=1 tab, PO, Daily Start Date: 09/19/13 Status: OrderedfentaNYL 25 microgram, 0.5 mL, Route: IVP, Drug form: INJ, Q5Min, Dosing Weight 95.909, kg, PRN Pain Score 4-6, Start date: 09/22/13 15:54:00, Duration: 4 doses or times, Stop date: 09/22/13 23:00:00 Notes: (Same as: Sublimaze) Preservative free. Start Date: 09/22/13 Stop Date: 09/22/13 Status: DiscontinuedFish Oil 1,000 mg, Route: PO, Drug form: CAP, Daily, Dosing Weight 95.909, kg, Start date : 09/23/13 9:00:00, Duration: 30 day, Stop date: 10/22/13 9:00:00 Start Date: 09/23/13 Stop Date: 09/22/13 Status: DeletedFish Oil 1000 mg oral capsule 1,000 mg=1 cap, PO, Daily Start Date: 09/19/13 Status: Orderedflumazenil 0.2 mg, 2 mL, Route: IVP, Drug form: INJ, PRN, Dosing Weight 95.909, kg, PRN Benzodiazepine Reversal, Initial dose, Start date: 09/22/13 15:54:00, Stop date : 09/22/13 23:00:00 Notes: (Same as: Romazicon) Start Date: 09/22/13 Stop Date: 09/22/13 Status: DiscontinuedhydrALAZINE 10 mg, 0.5 mL, Route: IVP, Drug form: INJ, Q20Min, Dosing Weight 95.909, kg, PRN Elevated BP, Start date: 09/22/13 15:54:00, Duration: 2 doses or times, Stop date: 09/22/13 23:00:00 Notes: (Same as: Apresoline)Push over 5 minutes Start Date: 09/22/13 Stop Date: 09/22/13 Status: Discontinuedhydrochlorothiazide 25 mg, PO, Daily Start Date: 09/19/13 Status: Orderedhydrochlorothiazide 25 mg, 1 tab, Route: PO, Drug form: TAB, Daily, Dosing Weight 95.909, kg, Start date: 09/23/13 9:00:00, Duration: 30 day, Stop date: 10/22/13 9:00:00 Notes: (Same as: Hydrodiuril) With food. Start Date: 09/23/13 Stop Date: 09/22/13 Status: Canceledlabetalol 10 mg, 2 mL, Route: IVP, Drug form: INJ, Q5Min, Dosing Weight 95.909, kg, PRN Elevated BP, Start date: 09/22/13 15:54:00, Duration: 5 doses or times, Stop date: 09/22/13 23:00:00 Start Date: 09/22/13 Stop Date: 09/22/13 Status: DiscontinuedLovaza 1 gm, 1 cap, Route: PO, Drug form: CAP, Daily, Start date: 09/23/13 9:00:00, Duration: 30 day, Stop date: 10/22/13 9:00:00 Notes: (Same as: Philip, formally named [place])"Do Not Crush"pharmacy re-entry for product selection Start Date: 09/23/13 Stop Date: 09/22/13 Status: Canceledmetoclopramide 10 mg, 2 mL, Route: IVP, Drug form: INJ, Q6H, Dosing Weight 95.909, kg, PRN Nausea & Vomiting, Start date: 09/22/13 15:54:00, Stop date: 09/22/13 23:00: 00 Notes: (Same as: Reglan) Start Date: 09/22/13 Stop Date: 09/22/13 Status: Discontinuednaloxone 0.04 mg, 0.1 mL, Route: IVP, Drug form: INJ, Q2MIN, Dosing Weight 95.909, kg, PRN Narcotic Reversal,Start date: 09/22/13 15:54:00, Duration: 8 doses or times , Stop date: 09/22/13 23:00:00 Notes: Same as Narcan Start Date: 09/22/13 Stop Date: 09/22/13 Status: DiscontinuedNS 0.45% IV 1,000 mL 1,000 mL, Rate: 50 ml/hr, Infuse over: 20 hr, Route: IV, Dosing Weight 95.909 kg , Total Volume: 1,000, Start date: 09/22/13 15:40:00, Duration: 30 day, Stop date: 10/22/13 15:39:00 Start Date: 09/22/13 Stop Date: 09/22/13 Status: Discontinuedondansetron 4 mg, 2 mL, Route: IVP, Drug form: INJ, ONCE, Dosing Weight 95.909, kg, PRN Nausea & Vomiting, Start date: 09/22/13 15:54:00 Notes: (Same as: Zofran) Start Date: 09/22/13 Stop Date: 09/22/13 Status: DiscontinuedPepcid 20 mg, 1 tab, Route: PO, Drug form: TAB, Q12H, Start date: 09/22/13 21:00:00, Duration: 30 day, Stopdate: 10/22/13 9:00:00 Notes: (Same as: Pepcid) Start Date: 09/22/13 Stop Date: 09/22/13 Status: CanceledSodium Chloride 0.9% IV 250 mL, Route: IVPB, Start date: 09/22/13 15:43:00, Duration: 30 day, Stop date : 10/22/13 15:42:00, PRN Line Flush Start Date: 09/22/13 Stop Date: 09/22/13 Status: DiscontinuedVitamin D3 1000 intl units oral capsule 1,000 IntlUnit=1 cap, PO, Daily Start Date: 09/19/13 Status: OrderedZinacef + Sodium Chloride 0.9% IV 100 mL 1.5 gm, Route: IVPB, ONCE, Start date: 09/22/13 23:00:00, Stop date: 09/22/13 23 :00:00 Notes: (Same As: Kefurox, Zinacef) Start Date: 09/22/13 Stop Date: 09/22/13 Status: CanceledZofran 4 mg, 2 mL, Route: IV, Drug form: INJ, Q6H, Dosing Weight 93.651, kg, PRN Nausea , Start date: 09/22/13 15:40:00, Duration: 30 day, Stop date: 10/22/13 15:39:00 Notes: (Same as: Zofran) Start Date: 09/22/13 Stop Date: 09/22/13 Status: Discontinued Results BLOOD BANK RESULTS Most recent to oldest [Reference Range]: 1 2 ABO/Rh A POS *Unknown* (09/19/13 10:34 AM) Antibody Scrn Negative (09/19/13 10:34 AM) RBC product Product available (09/19/13 10:34 AM) ELECTROLYTES Most recent to oldest [Reference Range]: 1 2 Sodium Lvl [135-145 mEq/L] 140 mEq/L (09/19/13 10:34 AM) Potassium Lvl [3.5-5.1 mEq/L] 3.1 mEq/L *LOW* (09/19/13 10:34 AM) Chloride Lvl [95-109 mEq/L] 103 mEq/L (09/19/13 10:34 AM) CO2 [24-32 mEq/L] 29 mEq/L (09/19/13 10:34 AM) AGAP [10.0-20.0 mEq/L] 11.1 mEq/L (09/19/13 10:34 AM) POC Sodium [135-145 mEq/L] 142 mEq/L (09/22/13 10:08 AM) POC Potassium [3.5-5.1 mEq/L] 4.0 mEq/L (09/22/13 10:08 AM) POC Chloride [95-109 mEq/L] 106 mEq/L (09/22/13 10:08 AM) POC Carbon Dioxide [24-32 mEq/dL] 24 mEq/dL (09/22/13 10:08 AM) POC AGAP [10.0-20.0 mEq/L] 17.0 mEq/L (09/22/13 10:08 AM) CHEM PANEL Most recent to oldest [Reference Range]: 1 2 Creatinine Lvl [0.5-1.4 mg/dL] 0.6 mg/dL (09/19/13 10:34 AM) eGFR 114 mL/min/1.73m2 1 114 mL/min/1.73m2 2 *NA* *NA* (09/22/13 10:08 AM) (09/19/13 10:34 AM) BUN [7-22 mg/dL] 24 mg/dL *HI* (09/19/13 10:34 AM) Glucose Lvl [70-99 mg/dL] 85 mg/dL 3 (09/19/13 10:34 AM) POC Creatinine [0.5-1.4 mg/dL] 0.6 mg/dL (09/22/13 10:08 AM) POC BUN [7-22 mg/dL] 16 mg/dL (09/22/13 10:08 AM) POC Glucose [70-99 mg/dL] 83 mg/dL (09/22/13 10:08 AM) Calcium Lvl [8.5-10.5 mg/dL] 9.2 mg/dL (09/19/13 10:34 AM) POC Ion Ca [1.05-1.25 mMol/L] 1.21 mMol/L (09/22/13 10:08 AM) 1Result Comment: The eGFR is calculated using the CKD-EPI formula. In most young , healthy individualsthe eGFR will be >90 mL/min/1.73m2. The eGFR declines with age. An eGFR of 60-89 may be normal in some populations, particularly the elderly, for whom the CKD-EPI formula has not been extensively validated. Use of the eGFR is not recommended in the following populations: Individuals with unstable creatinine concentrations, including patients and those with serious co-morbid conditions. Patients with extremes in muscle mass or diet. The data above are obtained from the National Kidney Disease Education Program ( NKDEP) which additionally recommends that when the eGFR is used in patients with extremes of body mass index for purposesof drug dosing, the eGFR should be multiplied by the estimated BMI.2Result Comment: The eGFR is calculated using the CKD-EPI formula. In most young, healthy individualsthe eGFR will be >90 mL/ min/1.73m2. The eGFR declines with age. An eGFR of 60-89 may be normal in some populations, particularly the elderly, for whom the CKD-EPI formula has not been extensively validated. Use of the eGFR is not recommended in the following populations: Individuals with unstable creatinine concentrations, including patients and those with serious co-morbid conditions. Patients with extremes in muscle mass or diet. The data above are obtained from the National Kidney Disease Education Program ( NKDEP) which additionally recommends that when the eGFR is used in patients with extremes of body mass index for purposesof drug dosing, the eGFR should be multiplied by the estimated BMI.3Interpretive Data: Adult reference range values reflect the clinical guidelines of the [place] [employer].ENDOCRINOLOGY Most recent to oldest [Reference Range]: 1 2 S Preg [Negative] Negative *NA* (09/19/13 10:34 AM) HEMATOLOGY Most recent to oldest [Reference Range]: 1 2 WBC [3.7-10.4 K/CMM] 6.8 K/CMM (09/19/13 10:34 AM) RBC [4.20-5.40 M/CMM] 4.63 M/CMM (09/19/13 10:34 AM) Hgb [12.0-16.0 g/dL] 13.6 g/dL (09/19/13 10:34 AM) Hct [36.0-48.0 %] 40.1 % (09/19/13 10:34 AM) MCV [81.0-99.0 fL] 86.5 fL (09/19/13 10:34 AM) MCH [27.0-31.0 pg] 29.3 pg (09/19/13 10:34 AM) MCHC [32.0-36.0 g/dL] 33.9 g/dL (09/19/13 10:34 AM) RDW [11.5-14.5 %] 14.2 % (09/19/13 10:34 AM) Platelet [133-450 K/CMM] 227 K/CMM (09/19/13 10:34 AM) MPV [7.4-10.4 fL] 9.1 fL (09/19/13 10:34 AM) POC Hemoglobin [12.0-16.0 g/dL] 13.3 g/dL (09/22/13 10:08 AM) POC Hematocrit [36.0-48.0 %] 39.0 % (09/22/13 10:08 AM) Segs [45.0-75.0 %] 66.3 % (09/19/13 10:34 AM) Lymphocytes [20.0-40.0 %] 28.3 % (09/19/13 10:34 AM) Monocytes [2.0-12.0 %] 4.0 % (09/19/13 10:34 AM) Eosinophils [0.0-4.0 %] 1.1 % (09/19/13 10:34 AM) Basophils [0.0-1.0 %] 0.3 % (09/19/13 10:34 AM) Segs-Bands # [1.5-8.1 K/CMM] 4.5 K/CMM (09/19/13 10:34 AM) Lymphocytes # [1.0-5.5 K/CMM] 1.9 K/CMM (09/19/13 10:34 AM) Monocytes # [0.0-0.8 K/CMM] 0.3 K/CMM (09/19/13 10:34 AM) Eosinophils # [0.0-0.5 K/CMM] 0.1 K/CMM (09/19/13 10:34 AM) Basophils # [0.0-0.2 K/CMM] 0.0 K/CMM (09/19/13 10:34 AM) PT [12.0-14.7 seconds] 13.1 seconds (09/19/13 10:34 AM) INR [0.85-1.17] 1.00 4 (09/19/13 10:34 AM) PTT [22.9-35.8 seconds] 30.0 seconds 5 (09/19/13 10:34 AM) 4Interpretive Data: RECOMMENDED RANGES FOR PROTIME INR: 2.0-3.0 for most medical and surgical thromboembolic states. 2.5-3.5 for artificial heart valves and recurrent embolism. INR SHOULD BE USED ONLY FOR PATIENTS ON STABLE ANTICOAGULANT THERAPY.5Interpretive Data: Heparin Therapeutic Range: 57 - 92 Seconds Medications Administered During Your Visit No data available for this section Immunizations No data available for this section Procedures Procedure Type Body Site Date of Procedure Related Diagnosis Cardiac catheterization 08/15/13 12:00 AM Social History Social History Type Response Substance Abuse Use: None Alcohol Use: Current, Type: Liquor, Frequency: 1-2 times per month, Previous treatment: None, Has alcohol use interfered with work or home life? No, Do you ever drink more than intended? No, Has anyone been hurt or at risk by your drinking? No, Ready to change: Yes, Concerns about alcohol use in household: No Smoking Status Former smoker, Type: Cigarettes, Previous treatment: Counseling , Ready to change: Yes, Concerns about tobacco use in household: No, Exposure to Tobacco Smoke Lives with someone who smokes, Cigarette Smoking Last 365 Days Yes, Reg Smoking Cessation Counseling No
--- OUTSIDE RECORDS SUMMARY | 2018-03-25 22:05 | XMS REPORT ---
:1970 [facility] Address [address] [place] [id number] Care Team Providers Name Role Phone Unavailable Unavailable Unavailable Problems This patient has no known problems. Allergies, Adverse Reactions, Alerts This patient has no known allergies or adverse reactions. Medications This patient has no known medications.
--- OUTSIDE RECORDS SUMMARY | 2018-03-25 22:05 | XMS REPORT | Summary of Care ---
:1970 Author Name ALFREDITO JIMENEZ M.D. Address [facility] Unavailable , Care Team Providers Name Role Phone ALFREDITO JIMENEZ M.D. Unavailable Unavailable Unavailable Unavailable Unavailable Functional Status Name Dates Details Functional status health issues are not documented Status: Name Dates Details Cognitive status health issues are not documented Status: Problems Name Dates Details Cyst of left breast (610.0, N60.02) Status: Active Medications Name Dates Details Vitamins/Minerals TABS Refills: 0 Active Allergies and Adverse Reactions Name Dates Details Compazine (Allergy) Status: Active Latex (Allergy) Status: Active Past Medical History Name Dates Details History of Cervical polyp (622.7, N84.1) Status: Resolved Procedures Procedure Dates Details History of Cholecystectomy laparoscopic Completed History of Appendectomy laparoscopic Completed History of Sleeve gastrectomy Completed History of Ovarian cystectomy Completed History of Cervical surgery Completed Immunization Name Dates Details Immunizations not documented Family History Name Dates Details Family history of malignant neoplasm of breast (V16.3, Z80.3) Status: Active Family history of malignant neoplasm of skin (V16.8, Z80.8) Status: Active Name Dates Details Family history of malignant neoplasm of uterus (V16.49, Z80.49) Status: Active Name Dates Details Family history of malignant neoplasm of breast (V16.3, Z80.3) Status: Active Family history of malignant neoplasm of ovary (V16.41, Z80.41) Status: Active Name Dates Details Family history of malignant neoplasm of breast (V16.3, Z80.3) Status: Active Name Dates Details Family history of pancreatic cancer (V16.0, Z80.0) Status: Active Name Dates Details Family history of malignant neoplasm of uterus (V16.49, Z80.49) Status: Active Social History Name Dates Details - Status: Name Dates Details Former smoker Vital Signs Date Test Result Details [id number] BP Systolic 117 mm[Hg] Status: BP Diastolic 74 mm[Hg] Status: Temperature 98.7 f Status: Heart Rate 75 /min Status: Weight 142 lb Status: Height 65 in Status: Body Mass Index Calculated 23.63 kg/m2 Status: Body Surface Area Calculated 1.71 m2 Status: Results Date Description Value Details Results not documented Plan of Care Name Dates Details Planned Observations Planned Goals not documented Planned Encounters Appointment; ALFREDITO JIMENEZ M.D. On: 20-Dec-2017 15:00 Interventions Provided PlanGenetic counseling referralMRI breastsFollow up after imaging Instructions Name Dates Details Instructions not documented Encounters Appointment; ALFREDITO JIMENEZ M.D. On: 06-Dec-2017 14:00 Encounter Diagnosis: Problem not documented
--- OUTSIDE RECORDS SUMMARY | 2018-03-25 22:05 | XMS REPORT | Summary of Care ---
:[address] [facility] Address [address] [place] [id number] Encounter HQ Pingntr_marija(FIN) [id number] Date(s): 06/03/16 - 06/04/16 [facility] [address] [place] [address] Professional Services provided by [facility] [address]- Discharge Disposition: Home or Self Care Attending Physician: Bernard Ibarra MD Admitting Physician: Bernard Ibarra MD Referring Physician: Bernard Ibarra MD Vital Signs Most recent to oldest 1 2 3 [Reference Range]: Height 165.1 cm 165.1 cm (06/03/16 9:10 PM) (05/29/16 2:43 PM) Temperature Oral [96.4-99.1 98.0 DegF 98.5 DegF 97.8 DegF DegF] (06/04/16 4:33 PM) (06/04/16 11:27 AM) (06/04/16 7:57 AM) Blood Pressure [90-140/60-90 107/70 mmHg 125/76 mmHg 125/85 mmHg mmHg] (06/04/16 4:33 PM) (06/04/16 11:27 AM) (06/04/16 7:57 AM) Respiratory Rate [14-20 BRMIN] 18 BRMIN 18 BRMIN 18 BRMIN (06/04/16 4:33 PM) (06/04/16 11:27 AM) (06/04/16 7:57 AM) Peripheral Pulse Rate [60-100 64 bpm 71 bpm 72 bpm bpm] (06/04/16 4:33 PM) (06/04/16 11:27 AM) (06/04/16 7:57 AM) Weight 103.636 kg 103.636 kg (06/03/16 9:10 PM) (06/03/16 11:34 AM) Body Mass Index 38.02 m2 38.02 m2 (06/03/16 9:10 PM) (06/03/16 11:34 AM) Problem List Condition Effective Dates Status Health Status Informant Angiography of coronary 08/15/13 Active arteries(Confirmed) Anxiety(Confirmed) Active Endometriosis of uterus(Confirmed) Resolved GERD (gastroesophageal reflux Active disease)(Confirmed) Morbid obesity(Confirmed) Active Occlusion of iliac vein(Confirmed) Active Hiatal hernia(Confirmed) Active Ovarian cyst(Confirmed) Resolved Cyst, ovarian(Confirmed) Resolved PCOD (polycystic ovarian Active disease)(Confirmed) Allergies, Adverse Reactions, Alerts Substance Reaction Severity Status Compazine " HEAD LOCKED TO ONE POSITION, JAW SHIFTED OVER, EYES Active ROLLED UP" NKFA Active Medications acetaminophen-hydrocodone 325 mg-7.5 mg/15 mL oral solution 15 mL, Route: PO, Drug Form: SOLN, Dosing Weight 103.636, kg, Q4H, PRN Pain Score 4-6, Start date: 06/03/16 18:05:00 CDT, Duration: 30 day, Stop date: 07/03 18:04:00 CDT Notes: Do not exceed 4gm/day of acetaminophen. (Same as: [place] 325/7.5) Start Date: 06/03/16 Stop Date: 06/04/16 Status: DiscontinuedANES flumazenil 0.2 mg, Route: IVP, PRN, Dosing Weight 103.636, kg, PRN Benzodiazepine Reversal , Initial dose, Startdate: 06/03/16 17:44:00 CDT, Duration: 30 day, Stop date: 07/03/16 17:43:00 CDT Start Date: 06/03/16 Stop Date: 06/03/16 Status: DiscontinuedANES HYDROmorphone 0.5 mg, Route: IVP, Q5Min, Dosing Weight 103.636, kg, PRN Pain Score 7-10, Start date: 06/03/16 17:44:00 CDT, Duration: 4 doses or times, Stop date: Limited # of times Start Date: 06/03/16 Stop Date: 06/03/16 Status: DiscontinuedANES naloxone 0.4 mg, Route: IVP, Q2MIN, Dosing Weight 103.636, kg, PRN Narcotic Reversal, Start date: 06/03/16 17:44:00 CDT, Duration: 8 doses or times, Stop date: Limited # of times Start Date: 06/03/16 Stop Date: 06/03/16 Status: DiscontinuedANES ondansetron 4 mg, Route: IVP, ONCE, Dosing Weight 103.636, kg, PRN Nausea & Vomiting, Start date: 06/03/16 17:44:00 CDT Start Date: 06/03/16 Stop Date: 06/03/16 Status: DiscontinuedBenadryl 25 mg, 0.5 mL, Route: IV, Drug form: INJ, QID, Dosing Weight 103.636, kg, PRN as needed for itching,Start date: 06/03/16 18:05:00 CDT, Duration: 30 day, Stop date: 07/03/16 18:04:00 CDT Notes: (Same as: Benadryl) Start Date: 06/03/16 Stop Date: 06/04/16 Status: Discontinuedbupivacaine 1,350 mg + Q-Pump 1 ea MISC, 4 ml/hr, Start date: 06/03/16 15:19:00 CDT, Duration: 7, 270 ml, 103.636 Notes: Preservative free. (Same As: Marcaine-MPF) Start Date: 06/03/16 Stop Date: 06/04/16 Status: DiscontinuedcefOXitin (SCIP) 2 gm, Route: IVPB, Drug form: INJ, Q6H, Dosing Weight 103.636, kg, Start date: 06/03/16 23:00:00 CDT, Duration: 1 doses or times, Stop date: 06/03/16 23:00:00 CDT Notes: (Same As: Mefoxin) MEDICATION WASTE Product Size: 2000 mgProduct Wasted: 0 ___ mg Start Date: 06/03/16 Stop Date: 06/03/16 Status: [id number] 1/2NS + KCL 20mEq/L 1000ml (Premix) 1,000 mL 1,000 mL, Rate: 125 ml/hr, Infuse over: 8 hr, Route: IV, Dosing Weight 103.636 kg, Total Volume: 1,000, Start date: 06/03/16 18:05:00 CDT, Duration: 30 day, Stop date: 07/03/16 18:04:00 CDT Notes: PREMIX IV - Do Not AlterWASTE: F/P - Sink; E - Municipal Trash Bin Start Date: 06/03/16 Stop Date: 06/04/16 Status: DiscontinuedEmend 125 mg, Route: IV, ONCE, Dosing Weight 103.636, kg, PRN Nausea, Start date: 18:32:00 CDT Start Date: 06/03/16 Stop Date: 06/03/16 Status: Discontinuedenalaprilat 1.25 mg, 1 mL, Route: IVP, Drug form: INJ, Q6H, Dosing Weight 103.636, kg, PRN Hypertension, Start date: 06/03/16 18:05:00 CDT, Duration: 30 day, Stop date: 18:04:00 CDT, BP Systolic greater than 190 and BP Siastolic greater than 100 Notes: (Same as: Vasotec-IV) Start Date: 06/03/16 Stop Date: 06/04/16 Status: Discontinuedheparin 5,000 unit, 1 mL, Route: SUB-Q, Drug form: INJ, PRE OP, Start date: 06/03/16 11: 00:00 CDT, Duration:1 day, Stop date: 06/04/16 10:59:00 CDT Notes: porcine heparin Start Date: 06/03/16 Stop Date: 06/04/16 Status: Completedheparin 5,000 unit, 1 mL, Route: SUB-Q, Drug form: INJ, Q8H, Dosing Weight 103.636, kg, Start date: 178:00:00 CDT, Duration: 30 day, Stop date: 07/04/16 0:00:00 CDT Notes: porcine heparin Start Date: 06/04/16 Stop Date: 06/04/16 Status: DiscontinuedHYDROmorphone MACHINE ZIPPER TRIMMER 0.5mg/ml 30ml INJ 15 mg 15 mg, 30 mL, Route: IV, Initial Loading Dose: 0.4mg, MACHINE ZIPPER TRIMMER Dose: 0.2 mg, MACHINE ZIPPER TRIMMER Lockout: 10 minutes, Continuous Basal Rate: 0 mg, 4 Hour Limit (In MG): 6, Drug Form: INJ, Continuous, Start date: 06/03/16 18:30:00 CDT, Duration: 30 day, Stop date: 07/03/16... Notes: (Same as: Dilaudid) conc=0.5 mg/mlHydromorphone MACHINE ZIPPER TRIMMER Dose: ;Delay : ;Basal: Start Date: 06/03/16 Stop Date: 06/04/16 Status: DiscontinuedketOROLAC 30 mg, 1 mL, Route: IVP, Drug form: INJ, Q6H, Dosing Weight 103.636, kg, Start date: 06/04/16 0:00:00 CDT, Duration: 6 doses or times, Stop date: 06/05/16 6:00 :00 CDT Notes: (Same as:Toradol) IV bolus must be given >15 seconds. Give IM administration slowly and deeply into the muscle.Not for use > 4 days MEDICATION WASTE Product Size: 30 mgProduct Wasted: __0_ mg Start Date: 06/04/16 Stop Date: 06/04/16 Status: DiscontinuedMefoxin 2 gm, Route: IVPB, Drug form: INJ, PRE OP, Start date: 06/03/16 11:00:00 CDT, Duration: 1 day, Stop date: 06/04/16 10:59:00 CDT Notes: (Same As: Mefoxin) MEDICATION WASTE Product Size: 2000 mgProduct Wasted: ___ mg Start Date: 06/03/16 Stop Date: 06/03/16 Status: Completednaloxone 0.04 mg, 0.1 mL, Route: IVP, Drug form: INJ, Q2MIN, Dosing Weight 103.636, kg, PRN Narcotic Reversal, Start date: 06/03/16 18:05:00 CDT, Duration: 30 day, Stop date: 07/03/16 18:04:00 CDT Notes: Same as Narcan Start Date: 06/03/16 Stop Date: 06/04/16 Status: DiscontinuedOfirmev 1 gm, 100 mL, Route: IV, Drug form: INJ, PRE OP, Start date: 06/03/16 11:00:00 CDT, Duration: 1 day,Stop date: 06/04/16 10:59:00 CDT Notes: Infuse over 15 minutesDo not exceed 4gm/day of acetaminophen MEDICATION WASTE ProductSize: 1000 mgProduct Wasted: ___ mg Start Date: 06/03/16 Stop Date: 06/04/16 Status: Completedondansetron 4 mg, 2 mL, Route: IVP, Drug form: INJ, Q6H, Dosing Weight 103.636, kg, PRN Nausea & Vomiting, Start date: 06/03/16 18:05:00 CDT, Duration: 30 day, Stop date: 07/03/16 18:04:00 CDT Notes: (Same as: Jayne) MEDICATION WASTE Product Size: 4 mgProduct Wasted: __0_ mg Start Date: 06/03/16 Stop Date: 06/04/16 Status: Discontinuedscopolamine 1 patch, Route: TOP, Drug form: ERFILM, PRE OP, Start date: 06/03/16 11:00:00 CDT, Duration: 1 day, Stop date: 06/04/16 10:59:00 CDT Notes: Change patch every 72 hours (Same as: Transderm-Scop) Start Date: 06/03/16 Stop Date: 06/04/16 Status: Completed Results BLOOD BANK RESULTS Most recent to oldest [Reference Range]: 1 2 ABO/Rh A POS *Unknown* (06/03/16 10:51 AM) Antibody Scrn Negative (06/03/16 10:51 AM) ELECTROLYTES Most recent to oldest [Reference Range]: 1 2 Sodium Lvl [135-145 mEq/L] 140 mEq/L 139 mEq/L (06/04/16 5:17 AM) (05/29/16 2:35 PM) Potassium Lvl [3.5-5.1 mEq/L] 4.3 mEq/L 4.3 mEq/L (06/04/16 5:17 AM) (05/29/16 2:35 PM) Chloride Lvl [95-109 mEq/L] 106 mEq/L 100 mEq/L (06/04/16 5:17 AM) (05/29/16 2:35 PM) CO2 [24-32 mEq/L] 17 mEq/L 27 mEq/L *LOW* (05/29/16 2:35 PM) (06/04/16 5:17 AM) AGAP [10.0-20.0 mEq/L] 21.3 mEq/L 16.3 mEq/L *HI* (05/29/16 2:35 PM) (06/04/16 5:17 AM) CHEM PANEL Most recent to oldest [Reference Range]: 1 2 Creatinine Lvl [0.50-1.40 mg/dL] 0.62 mg/dL 0.60 mg/dL (06/04/16 5:17 AM) (05/29/16 2:35 PM) eGFR 111 mL/min/1.73m2 1 112 mL/min/1.73m2 2 *NA* *NA* (06/04/16 5:17 AM) (05/29/16 2:35 PM) BUN [7-22 mg/dL] 11 mg/dL 19 mg/dL (06/04/16 5:17 AM) (05/29/16 2:35 PM) B/C Ratio [6-25] 32 *HI* (05/29/16 2:35 PM) Glucose Lvl [70-99 mg/dL] 114 mg/dL 73 mg/dL *HI* (05/29/16 2:35 PM) (06/04/16 5:17 AM) Total Protein [6.4-8.4 g/dL] 7.8 g/dL (05/29/16 2:35 PM) Albumin Lvl [3.5-5.0 g/dL] 4.2 g/dL (05/29/16 2:35 PM) Globulin [2.7-4.2 g/dL] 3.6 g/dL (05/29/16 2:35 PM) A/G Ratio [0.7-1.6] 1.2 (05/29/16 2:35 PM) Calcium Lvl [8.5-10.5 mg/dL] 8.6 mg/dL 9.3 mg/dL (06/04/16 5:17 AM) (05/29/16 2:35 PM) Phosphorus [2.5-4.5 mg/dL] 3.4 mg/dL (06/04/16 5:17 AM) Magnesium Lvl [1.8-2.4 mg/dL] 2.5 mg/dL *HI* (06/04/16 5:17 AM) ALT [0-65 unit/L] 40 unit/L (05/29/16 2:35 PM) AST [0-37 unit/L] 19 unit/L (05/29/16 2:35 PM) Alk Phos [39-136 unit/L] 173 unit/L *HI* (05/29/16 2:35 PM) Bili Total [0.2-1.3 mg/dL] 0.6 mg/dL (05/29/16 2:35 PM) 1Result Comment: The eGFR is calculated using [...] eGFR should be multiplied by the estimated BMI.HEMATOLOGY Most recent to oldest [Reference Range]: 1 2 WBC [3.7-10.4 K/CMM] 8.6 K/CMM 9.5 K/CMM (06/04/16:17 AM) (05/29/16 2:35 PM) RBC [4.20-5.40 M/CMM] 4.70 M/CMM 5.33 M/CMM (06/04/16:17 AM) (05/29/16 2:35 PM) Hgb [12.0-16.0 g/dL] 13.5 g/dL 15.2 g/dL (06/04/16:17 AM) (05/29/16 2:35 PM) Hct [36.0-48.0 %] 40.4 % 45.4 % (06/04/16:17 AM) (05/29/16 2:35 PM) MCV [80.0-98.0 fL] 85.9 fL 85.2 fL (06/04/16:17 AM) (05/29/16 2:35 PM) MCH [27.0-31.0 pg] 28.7 pg 28.5 pg (06/04/16:17 AM) (05/29/16 2:35 PM) MCHC [32.0-36.0 g/dL] 33.4 g/dL 33.5 g/dL (06/04/16:17 AM) (05/29/16 2:35 PM) RDW [11.5-14.5 %] 15.4 % 15.2 % *HI* *HI* (06/04/16:17 AM) (05/29/16 2:35 PM) Platelet [133-450 K/CMM] 229 K/CMM 229 K/CMM (06/04/16:17 AM) (05/29/16 2:35 PM) MPV [7.4-10.4 fL] 8.9 fL 9.0 fL (06/04/16:17 AM) (05/29/16 2:35 PM) Segs [45.0-75.0 %] 89.8 % 69.9 % *HI* (05/29/16 2:35 PM) (06/04/16:17 AM) Lymphocytes [20.0-40.0 %] 7.9 % 25.8 % *LOW* (05/29/16 2:35 PM) (06/04/16 5:17 AM) Monocytes [2.0-12.0 %] 2.2 % 3.7 % (06/04/16 5:17 AM) (05/29/16 2:35 PM) Eosinophils [0.0-4.0 %] 0.3 % (05/29/16 2:35 PM) Basophils [0.0-1.0 %] 0.1 % 0.3 % (06/04/16 5:17 AM) (05/29/16 2:35 PM) Segs-Bands # [1.5-8.1 K/CMM] 7.8 K/CMM 6.7 K/CMM (06/04/16 5:17 AM) (05/29/16 2:35 PM) Lymphocytes # [1.0-5.5 K/CMM] 0.7 K/CMM 2.5 K/CMM *LOW* (05/29/16 2:35 PM) (06/04/16 5:17 AM) Monocytes # [0.0-0.8 K/CMM] 0.2 K/CMM 0.4 K/CMM (06/04/16 5:17 AM) (05/29/16 2:35 PM) PT [12.0-14.7 seconds] 14.8 seconds *HI* (06/04/16 5:17 AM) INR [0.85-1.17] 1.14 (06/04/16 5:17 AM) PTT [22.9-35.8 seconds] 26.6 seconds (06/04/16 5:17 AM) Immunizations No data available for this section Procedures Procedure Date Related Diagnosis Body Site Evacuation of hematoma1 08/16/13 Cardiac catheterization 08/15/13 Ovarian operation 2007 Appendectomy Catheterization of left heart Cystectomy2 Operation3 Stent placement4 1Right leg exploration, evacuation of hematoma, repair of Right femoral artery, [id number] times three [id number] vein Social History Social History Type Response Substance Abuse Use: None. Alcohol Current, Type Beer, Wine, Liquor. Frequency: 1-2 times per year. Smoking Status Former smoker; Type: Cigarettes; Tobacco use per day: 1; Previous treatment: Counseling; Ready to change: Yes; Concerns about tobacco use in household: No; Lives with someone who smokes; Other Tobacco Frequency QUIT 08/15/2013; Cigarette Smoking Last 365 Days Yes; Reg Smoking Cessation Counseling No Assessment and Plan Extracted from: Title: Surgery Author: Bernard Ibarra MD Date: 06/04/16 Impression and Plan Doing fine. D/c home this pm. F/u in 2 weeks.
[2018-03-25] MEDS ORDERED: NA CHLORIDE 0.9% 1,000 ML ONE (23:45)
[2018-03-26] LABS: Absolute Lymphocytes (CBC) 3.2 K/uL (0.7-4.9); Absolute Monocytes 0.3 K/uL (0.1-1.3); Absolute Neutrophil 3.3 K/uL (1.8-8.0); Basophils % 0.3 % (0-1.3); Eosinophils % 0.5 % (0-4.4); Hematocrit 37.3 % (36.0-45.0); Lymphocytes % 46.5 % (15.3-44.8); MPV 9.3 fL (7.6-11.3); Monocytes % 4.8 % (3.3-12.3); Protime INR 0.98; RBC Red Blood Cell Count 4.29 M/uL (3.86-4.86)
[2018-03-26 00:03] LABS: Urine Blood NEGATIVE (NEG); Urine Glucose NEGATIVE (NEG); Urine Protein TRACE (NEG)
--- NOTE | 2018-03-26 00:09 | ER ---
Nurse's Notes [facility] Name: Salena Miller Age: 47 yrs Sex: Female : 1970 Arrival Date: 03/25/2018 Time: 22:01 Bed 19 Private MD: Diagnosis: Chest pain, unspecified Presentation: 03/25 22:20 Presenting complaint: Patient states: she is having pressure on her chest and a sharp bb pain in left jaw which started approx an hour ago feels a little shortness of breath and feel nauseous. The pressure in her chest has been going on for several days and seems to be getting worse. Transition of care: patient was not received from another setting of care. Onset of symptoms was March 25, 2018. Risk Assessment: Do you want to hurt yourself or someone else? Patient reports no desire to harm self or others. Initial Sepsis Screen: Does the patient meet any 2 criteria? No. Patient's initial sepsis screen is negative. Does the patient have a suspected source of infection? No. Patient's initial sepsis screen is negative. Care prior to arrival: None. 22:20 Method Of Arrival: Ambulatory bb 22:20 Acuity: MICHELLE 3 bb BOX [employer]ING [employer]ER: 22:24 LMP 03/11/2018 bb Historical: - Allergies: 22:24 Compazine; bb - Home Meds: 22:24 None [Active]; bb - PMHx: 22:24 None; bb - PSHx: 22:24 gastric sleeve; Cholecystectomy; Appendectomy; oophorectomy; endometriosis x 4; heart bb cath; stent to iliac vein right side; - Immunization history:: Adult Immunizations up to date, Flu vaccine is not up to date. - Social history:: Smoking status: Patient/guardian denies using tobacco, Patient/guardian denies using alcohol. - Ebola Screening: : No symptoms or risks identified at this time. - Family history:: not pertinent. Screenin:30 Abuse screen: Denies threats or abuse. Denies injuries from another. Nutritional ca1 screening: No deficits noted. Tuberculosis screening: No symptoms or risk factors identified. Fall Risk None identified. Assessment: 22:30 General: Appears in no apparent distress. uncomfortable, Behavior is calm, cooperative, ca1 appropriate for age. Pain: Complains of pain in chest and anterior aspect of left upper chest and left clavicle Pain radiates to left neck and left jaw Pain currently is 7 out of 10 on a pain scale. Pain began. Neuro: Level of Consciousness is awake, alert, obeys commands, Oriented to person, place, time, situation. Cardiovascular: Reports chest pain, shortness of breath, Heart tones S1 S2 present Capillary refill < 3 seconds Patient's skin is warm and dry. Pulses are all present. Respiratory: Airway is patent Trachea midline Respiratory effort is even, unlabored, Respiratory pattern is regular, symmetrical, Breath sounds are clear bilaterally. GI: Abdomen is flat, non-distended, Bowel sounds present X 4 quads. Abd is soft and non tender X 4 quads. Reports nausea. : No signs and/or symptoms were reported regarding the genitourinary system. EENT: No signs and/or symptoms were reported regarding the EENT system. Derm: Skin is intact, is healthy with good turgor, Skin is pink, warm \T\ dry. Musculoskeletal: Circulation, motion, and sensation intact. Capillary refill < 3 seconds, Range of motion: intact in all extremities. 23:25 Reassessment: Patient appears in no apparent distress at this time. Patient and/or ca1 family updated on plan of care and expected duration. Pain level reassessed. Patient is alert, oriented x 3, equal unlabored respirations, skin warm/dry/pink. 03/26 00:16 Reassessment: Patient appears in no apparent distress at this time. Awaiting room ca1 assignment and orders. 01:26 Reassessment: Patient appears in no apparent distress at this time. Patient and/or ca1 family updated on plan of care and expected duration. Pain level reassessed. Patient is alert, oriented x 3, equal unlabored respirations, skin warm/dry/pink. 01:51 Reassessment: Called for report. 4th floor nurse will call back.. ca1 Vital Signs: 03/25 22:24 BP 119 / 81; Pulse 68; Resp 16 S; Temp 97.8(O); Weight 64.86 kg (R); Height 5 ft. 5 in. bb (165.10 cm) (R); Pain 7/10; 23:40 BP 110 / 80; Pulse 62; Resp 18; Pulse Ox 100% on R/A; ca1 03/26 00:30 BP 111 / 78; Pulse 65; Resp 18; Pulse Ox 100% on R/A; ca1 01:30 BP 102 / 75; Pulse 57; Resp 17; Pulse Ox 98% on R/A; ca1 03/25 22:24 Body Mass Index 23.80 (64.86 kg, 165.10 cm) bb ED Course: 03/25 22:01 Patient arrived in ED. al2 22:22 Triage completed. bb 22:24 Arm band placed on Patient placed in waiting room, Patient notified of wait time. EKG bb completed in triage. Results shown to MD. Family accompanied patient. 22:30 Patient has correct armband on for positive identification. Placed in gown. Bed in low ca1 position. Call light in reach. Side rails up X 1. nuclear monitoring technician on. Pulse ox on. NIBP on. Warm blanket given. 22:40 Inserted saline lock: 20 gauge in right antecubital area, using aseptic technique. ca1 Blood collected. 22:40 Patient maintains SpO2 saturation greater than 95% on room air. ca1 22:48 Narciso Serra MD is Attending Physician. jerome 23:34 X-ray completed. Portable x-ray completed in exam room. Patient tolerated procedure sg4 well. 23:46 XRAY Chest (1 view) In Process Unspecified. EDMT 03/26 00:04 Tressa Bynum, ALBINO is Primary Nurse. ca1 00:08 Raffy Barrientos MD is Hospitalizing Provider. jerome 01:49 No provider procedures requiring assistance completed. Patient admitted, IV remains in ca1 place. Administered Medications: 03/25 23:10 Drug: NS 0.9% 1000 ml Route: IV; Rate: 75 ml/hr; Site: right antecubital; ca1 03/26 01:45 Follow up: IV Status: Infusion continued upon admission ca1 00:20 Drug: Aspirin 162 mg Route: PO; jb4 01:45 Follow up: Response: No adverse reaction ca1 Outcome: 00:08 Decision to Hospitalize by Provider. jerome 02:17 Admitted to Tele accompanied by nurse, via wheelchair, room 411, with chart, Report ca1 called to Janet Sanders RN 02:17 Condition: stable 02:17 Condition: stable 02:17 Instructed on the need for admit, Demonstrated understanding of instructions. 02:39 Patient left the ED. ca1 Signatures: Dispatcher [employer] EDMT Narciso Serra MD MD cha Ballard, Brenda RN RN bb Fidel Garcia RN RN jb4 Columba Stephanie al2 Nicole Bell4 Tressa Bynum RN RN ca1 Corrections: (The following items were deleted from the chart) 01:48 03/25 22:30 GI: Abdomen is flat, non-distended, Bowel sounds present X 4 quads. Abd is ca1 soft and non tender X 4 quads. ca1
--- NOTE | 2018-03-26 00:09 | EDPHYS ---
Physician Documentation [facility] Name: Salena Miller Age: 47 yrs Sex: Female : 1970 Arrival Date: 03/25/2018 Time: 22:01 Bed 19 Private MD: ED Physician Narciso Serra HPI: 03/26 00:04 This 47 yrs old Female presents to ER via Ambulatory with complaints of Chest jermoe Pain. 00:04 The patient or guardian reports chest pain that is located primarily in the substernal jerome area, anterior chest wall, left. Onset: 1 day(s) ago. The pain radiates to left jaw. Associated signs and symptoms: The patient has no apparent associated signs or symptoms. The chest pain is described as a heaviness, a pressure. Duration: The patient or guardian reports a single episode, that is still ongoing, but improving. Modifying factors: The symptoms are alleviated by nothing. the symptoms are aggravated by nothing. Severity of pain: At its worst the pain was moderate in the emergency department the pain has improved moderately. The patient has experienced similar episodes in the past, a few times. 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 - Social history:: Smoking status: Patient/guardian denies using tobacco, Patient/guardian denies using alcohol. - Ebola Screening: : No symptoms or risks identified at this time. - Family history:: not pertinent. ROS: 03/26 00:04 Constitutional: Negative for fever, chills, and weight loss, Eyes: Negative for injury, jerome pain, redness, and discharge, ENT: Negative for injury, pain, and discharge, Neck: Negative for injury, pain, and swelling, Respiratory: Negative for shortness of breath, cough, wheezing, and pleuritic chest pain, Abdomen/GI: Negative for abdominal pain, nausea, vomiting, diarrhea, and constipation, Back: Negative for injury and pain, : Negative for injury, bleeding, discharge, and swelling, MS/Extremity: Negative for injury and deformity, Skin: Negative for injury, rash, and discoloration, Neuro: Negative for headache, weakness, numbness, tingling, and seizure, Psych: Negative for depression, anxiety, suicide ideation, homicidal ideation, and hallucinations, Allergy/Immunology: Negative for hives, rash, and allergies, Endocrine: Negative for neck swelling, polydipsia, polyuria, polyphagia, and marked weight changes, Hematologic/Lymphatic: Negative for swollen nodes, abnormal bleeding, and unusual bruising. Cardiovascular: Positive for chest pain, of the left clavicle and anterior aspect of left upper chest. Exam: 00:04 Constitutional: This is a well developed, well nourished patient who is awake, alert, jerome and in no acute distress. Head/Face: Normocephalic, atraumatic. Eyes: Pupils equal round and reactive to light, extra-ocular motions intact. Lids and lashes normal. Conjunctiva and sclera are non-icteric and not injected. Cornea within normal limits. Periorbital areas with no swelling, redness, or edema. ENT: Nares patent. No nasal discharge, no septal abnormalities noted. Tympanic membranes are normal and external auditory canals are clear. Oropharynx with no redness, swelling, or masses, exudates, or evidence of obstruction, uvula midline. Mucous membranes moist. Neck: Trachea midline, no thyromegaly or masses palpated, and no cervical lymphadenopathy. Supple, full range of motion without nuchal rigidity, or vertebral point tenderness. No Meningismus. Chest/axilla: Normal chest wall appearance and motion. Nontender with no deformity. No lesions are appreciated. Cardiovascular: Regular rate and rhythm with a normal S1 and S2. No gallops, murmurs, or rubs. Normal PMI, no JVD. No pulse deficits. Respiratory: Lungs have equal breath sounds bilaterally, clear to auscultation and percussion. No rales, rhonchi or wheezes noted. No increased work of breathing, no retractions or nasal flaring. Abdomen/GI: Soft, non-tender, with normal bowel sounds. No distension or tympany. No guarding or rebound. No evidence of tenderness throughout. Back: No spinal tenderness. No costovertebral tenderness. Full range of motion. Female : Normal external genitalia. Skin: Warm, dry with normal turgor. Normal color with no rashes, no lesions, and no evidence of cellulitis. MS/ Extremity: Pulses equal, no cyanosis. Neurovascular intact. Full, normal range of motion. Neuro: Awake and alert, GCS 15, oriented to person, place, time, and situation. Cranial nerves II-XII grossly intact. Motor strength 5/5 in all extremities. Sensory grossly intact. Cerebellar exam normal. Normal gait. Psych: Awake, alert, with orientation to person, place and time. Behavior, mood, and affect are within normal limits. 00:04 Musculoskeletal/extremity: ROM: intact in all extremities, full active range of motion, full passive range of motion, Circulation is intact in all extremities. Compartment Syndrome exam of affected extremity: is normal. DVT Exam: No signs of deep vein thrombosis. no pain, no swelling, no tenderness, negative Homans' sign noted on exam, no appreciated bluish discoloration, no erythema, no increased warmth. Vital Signs: 03/25 22:24 BP 119 / 81; Pulse 68; Resp 16 S; Temp 97.8(O); Weight 64.86 kg (R); Height 5 ft. 5 in. bb (165.10 cm) (R); Pain 7/10; 23:40 BP 110 / 80; Pulse 62; Resp 18; Pulse Ox 100% on R/A; ca1 03/26 00:30 BP 111 / 78; Pulse 65; Resp 18; Pulse Ox 100% on R/A; ca1 01:30 BP 102 / 75; Pulse 57; Resp 17; Pulse Ox 98% on R/A; [facility] 03/25 22:24 Body Mass Index 23.80 (64.86 kg, 165.10 cm) bb MDM: 03/25 22:48 Patient medically screened. [facility] 03/26 00:04 Data reviewed: vital signs, nurses notes, lab test result(s), EKG, radiologic studies, [facility] plain films. 03/25 22:49 Order name: Basic Metabolic Panel; Complete Time: 01:00 [facility] 03/25 22:49 Order name: CBC with Diff; Complete Time: 00:03 [facility] 03/25 22:49 Order name: LFT's; Complete Time: 01: [facility] 03/25 22:49 Order name: Magnesium; Complete Time: 01: [facility] 03/25 22:49 Order name: NT PRO-BNP; Complete Time: 01:00 [facility] 03/25 22:49 Order name: PT-INR; Complete Time: 01:00 [facility] 03/25 22:49 Order name: Troponin (emerg Dept Use Only); Complete Time: 01:00 [facility] 03/25 22:49 Order name: XRAY Chest (1 view) [facility] 03/25 22:49 Order name: Lipase; Complete Time: 01:00 [facility] 03/25 22:49 Order name: Urine Culture [facility] 03/25 23:42 Order name: Urine Dipstick--Ancillary (enter results); Complete Time: 01:00 [facility] 03/26 00:17 Order name: D-Dimer; Complete Time: 01:00 [facility] 03/25 22:49 Order name: EKG; Complete Time: 22:50 [facility] 03/25 22:49 Order name: Cardiac monitoring; Complete Time: 00:06 [facility] 03/25 22:49 Order name: EKG - Nurse/Tech; Complete Time: 00:06 [facility] 03/25 22:49 Order name: IV Saline Lock; Complete Time: 00:06 [facility] 03/25 22:49 Order name: Labs collected and sent; Complete Time: 00:06 [facility] 03/25 22:49 Order name: O2 Per Protocol; Complete Time: 00:06 [facility] 03/25 22:49 Order name: O2 Sat Monitoring; Complete Time: 00:06 [facility] 03/25 22:49 Order name: Urine Dipstick-Ancillary (obtain specimen); Complete Time: 00:17 [facility] Administered Medications: 03/25 23:10 Drug: NS 0.9% 1000 ml Route: IV; Rate: 75 ml/hr; Site: right antecubital; ca1 03/26 01:45 Follow up: IV Status: Infusion continued upon admission ca1 00:20 Drug: Aspirin 162 mg Route: PO; jb4 01:45 Follow up: Response: No adverse reaction ca1 Disposition: 03/26/18 00:08 Hospitalization ordered by Raffy Barrientos for Observation. Preliminary diagnosis is Chest pain, unspecified. - Bed requested for Telemetry/MedSurg (observation). - Status is Observation. ca1 - Condition is Stable. - Problem is new. - Symptoms have improved. UTI on Admission? 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 [facility] 01:28 00:08 Hospitalization Ordered by Raffy Barrientos MD for Observation. Preliminary kl diagnosis is Chest pain, unspecified. Bed requested for Telemetry/MedSurg (observation). Status is Observation. Condition is Stable. Problem is new. Symptoms have improved. UTI on Admission? No. jerome 02:39 01:28 03/26/2018 00:08 Hospitalization Ordered by Raffy Barrientos MD for Observation. ca1 Preliminary diagnosis is Chest pain, unspecified. Bed requested for Telemetry/MedSurg (observation). Status is Observation. Condition is Stable. Problem is new. Symptoms have improved. UTI on Admission? No. ramon
[2018-03-26 00:14] LABS: ALT/SGPT 25 U/L (12-78); AST/SGOT 14 U/L (15-37); Albumin 3.5 g/dL (3.4-5.0); Alkaline Phosphatase 97 U/L (45-117); BUN Blood Urea Nitrogen 24 mg/dL (7-18); Bicarbonate 28 mmol/L (21-32); Bilirubin Direct < 0.1 mg/dL (0-0.2); Bilirubin Total 0.2 mg/dL (0.2-1.0); Glucose Level 88 mg/dL (74-106); Lipase 205 U/L (73-393); Magnesium 2.7 mg/dL (1.8-2.4); NT PRO-BNP 97 pg/mL (<125); Potassium 3.7 mmol/L (3.5-5.1); Protein, Total 6.7 g/dL (6.4-8.2); Sodium Level 142 mmol/L (136-145); Troponin (Emerg Dept Use Only) < 0.02 ng/mL (0.0-0.045)
[2018-03-26] MEDS ORDERED: ASPIRIN 81 MG CHEWABLE TABLET ONE (00:20)
[2018-03-26 02:46] VITALS: BMI 25.4
[2018-03-26] MEDS ORDERED: ACETAMINOPHEN 500 MG TAB PO PRN (02:46)
[2018-03-26] MEDS ORDERED: KETOROLAC 30 MG/ML INJ IV PRN (02:46)
[2018-03-26] MEDS ORDERED: NITROGLYCERIN 0.4 MG/TAB SL PRN (03:00)
[2018-03-26 03:01] VITALS: O2SAT 98
--- NOTE | 2018-03-26 04:45 | P.HP ---
Certification for Inpatient Patient admitted to: Observation With expected LOS: <2 Midnights Practitioner: I am a practitioner with admitting privileges, knowledge of patient current condition, hospital course, and medical plan of care. Services: Services provided to patient in accordance with Admission requirements found in Title 42 Section 412.3 of the Code of Federal Regulations Patient History Date of Service: 03/26/18 Reason for admission: chest pain History of Present Illness: Ms Miller is a 47 years old woman whit history of CAD with previous stent placement, who came to ED complaining of chest pain starting 1 day ago. The pain is comes and go, pressure like, 8/10 of intensity, radiated to the neck, jaw and left shoulder. She denied nausea, vomiting or diaphoresis episode, but she has had SOB associated wit the pain. Initial lab work shows normal Trop I level. EKG, SR without ST-T abnormalities. At my encounter she was in non- distress. Allergies hydrocodone Allergy (Verified 03/26/18 03:20) Rash prochlorperazine [From Compazine] Allergy (Verified 03/26/18 02:14) Rash Home medications list reviewed: Yes Home Medications: NK [No Home Meds] 03/26/18 - Past Medical/Surgical History Diabetic: No -: endometriosis -: heart cath 2012, stent -: CAD -: mark -: appy -: gastric sleeve surgery -: laparoscopies for endometriosis - Family History Family History: Reviewed- Non-Contributory - Family History Father Notes: no past med history Mother Notes: no past med history - Social History Smoking Status: Former smoker Alcohol use: No CD- Drugs: No Caffeine use: Yes Place of Residence: Home Review of Systems 10-point ROS is otherwise unremarkable Physical Examination - Vital Signs Temperature: 97 F Blood Pressure: 106/75 Pulse: 64 Respirations: 18 Pulse Ox (%): 97 - Physical Exam General: Alert, In no apparent distress HEENT: Atraumatic, PERRLA, Mucous membr. moist/pink, EOMI, Sclerae nonicteric Neck: Supple, 2+ carotid pulse no bruit, No LAD, Without JVD or thyroid abnormality Respiratory: Clear to auscultation bilaterally, Normal air movement Cardiovascular: Regular rate/rhythm, Normal S1 S2 Gastrointestinal: Normal bowel sounds, No tenderness Musculoskeletal: No tenderness Integumentary: No rashes Neurological: Normal speech, Normal strength at 5/5 x4 extr, Normal tone, Normal affect Lymphatics: No axilla or inguinal lymphadenopathy - Studies Laboratory Data (last 24 hrs) 03/25/18 23:33: PT 11.6, INR 0.98 03/25/18 23:33: WBC 6.8, Hgb 12.3, Hct 37.3, Plt Count 209 03/25/18 23:33: Sodium 142, Potassium 3.7, BUN 24 H, Creatinine 0.81, Glucose 88 , Magnesium 2.7 H, Total Bilirubin 0.2, AST 14 L, ALT 25, Alkaline Phosphatase 97, Lipase 205 Assessment and Plan - Problems (Diagnosis) (1) Chest pain Current Visit: Yes Status: Acute Qualifiers: Chest pain type: precordial pain Qualified Code(s): R07.2 - Precordial pain (2) CAD (coronary artery disease) Current Visit: Yes Status: Acute Qualifiers: Coronary Disease-Associated Artery/Lesion type: circle artery Council vs. transplanted heart: circle heart Associated angina: angina presence unspecified Qualified Code(s): I25.10 - Atherosclerotic heart disease of circle coronary artery without angina pectoris - Plan The patient will be admitted to the hospital due to chest pain in order to R/O ACS. So far cardiac enzymes and EKG negative. Will order serial trop I and EKG, consult cardiology team. - Advance Directives Does patient have a Living Will: No Does patient have a Durable POA for Healthcare: No - Code Status/Comfort Care Code Status Assessed: Yes Code Status: Full Code
--- NOTE | 2018-03-26 06:36 | EKG ---
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
[2018-03-26] MEDS ORDERED: ENOXAPARIN 40 MG/0.4 ML SQ SCH (09:00)
[2018-03-26] MEDS ORDERED: ASPIRIN EC 81 MG TAB PO SCH (09:00)
--- NOTE | 2018-03-26 09:15 | RAD REPORT ---
EXAM DESCRIPTION: RAD - Chest Single View - 03/25/2018 11:46 pm CLINICAL HISTORY: Chest pain COMPARISON: None. TECHNIQUE: AP portable chest image was obtained 2332 hours . FINDINGS: Lungs are clear. Heart and vasculature are normal. No measurable pleural effusion and no p neumothorax. No acute bony abnormality seen. No acute aortic findings suspected. IMPRESSION: No acute cardiopulmonary process.
--- NOTE | 2018-03-26 10:05 | CON ---
History Of Present Illness: Ms. Miller is 47. She seems to be very healthy lady. She was having [address] st pain. The pain is more in the left pectoral muscle region, top of the left breast. It seemed to come and go a few times and now she does not have it at all. Troponins are normal. EKGs are normal. The patient has never had any kind of vascular disease. She does not have diabetes or hypertension . Uses no tobacco. Allergies: SHE IS ALLERGIC TO HYDROCODONE AND PROCHLORPERAZINE. Medications: Outpatient medications have been none. She does not have diabetes, hypertension, or dyslipidemia. Physical Examination: VITAL SIGNS: 5 feet 5 inches, 153 pounds. HEENT: Normal. Carotids, no bruit. Lungs: Clear. Cardiac: Normal. No friction rub. Extremities: Normal. Impression: The patient is a very low risk patient. At this point, she can be discharged today, and if the chest pain recurs or if her physician is concerned she might have heart trouble, we could do a stress test. At this point, I do not really think it is an urgent necessity. MURPHY Voice ID: [id number] Report ID: [id number]
[2018-03-26] MEDS ORDERED: ONDANSETRON 4 MG/2 ML VIAL IV PRN (11:19)
[2018-03-26 12:06] VITALS: BP 101/58; TEMP 97.8
--- NOTE | 2018-03-27 07:54 | DS ---
Date of Discharge: 03/26/2018 Consultants: Dr. Arenas, Cardiology. Procedures: None. Discharge Diagnoses: 1.Atypical chest pain. 2.Anxiety disorder, history of panic attack. Hospital Course: The patient is a 47-year-old female with no significant past medical history other than anxiety and panic attack, who has had a cardiac catheterization done previously with no signific ant findings, comes in with chest pain. The patient's workup was negative. Cardiac enzyme was negat eryn. Her cholesterol panel was also normal. D-dimer was negative. The patient was seen by Cardiolo gy for risk stratification. The patient's EKG did not show any acute changes. Cardiology did not re commend any testing at this time, recommends outpatient stress test, which is of no significant urgen cy. The patient felt better. She did have some nausea, which improved with Zofran. The patient was able to tolerate her diet and was ambulating well without any difficulty. The patient's symptoms im proved. The patient was then cleared for discharge and was sent home in a stable condition. Activity: As tolerated. Medications: As per medication reconciliation list. Followup: Follow up with primary care physician in 2 to 3 days. Follow up with photography editor, Dr. Romel rinaldi, in 2 weeks. Return to ER for worsening condition. Physical Examination: General: Awake, alert, oriented, no acute distress. CV: S1, S2. No murmurs. Respiratory: Moving air well bilaterally. No wheezing. Gastrointestinal: Abdomen is soft, nontender, nondistended. Positive bowel sounds. Extremities: No clubbing, cyanosis, edema. Neuro: Nonfocal. SA/MODL Voice ID: [id number] Report ID: [id number]
== END 2018-03-26 15:02 | disposition home or self-care (01) ==
LOC: ER 21:58 → ERHOLD 03-26 01:19 → 4TH 03-26 02:18
PROVIDERS: ADMIT Internal Medicine; ATTEND Internal Medicine
DX: R07.89 Other chest pain (principal); F41.9 Anxiety disorder, unspecified; I25.10 Atherosclerotic heart disease of native coronary artery without angina pectoris; Z95.5 Presence of coronary angioplasty implant and graft; Z98.84 Bariatric surgery status
CPT/HCPCS: 36415; 71045; 80048; 80061; 80076; 81003; 83690; 83735; 83880; 84484; 85025; 85379; 85610; 87077; 87086; 87088; 87186; 93005; 96360; 96361; 99285; G0378; J1650; J2405; J7030